=== PATIENT | female | born 1995 | race Caucasian/White ===

== ENCOUNTER 2022-04-07 16:16 | Emergency (ER) | payer OTHER, SELFPAY | END 2022-04-07 18:19 | disposition left against medical advice (07) | PROVIDERS: Emergency Provider Emergency Medicine | DX: Z02.83 Encounter for blood-alcohol and blood-drug test (principal) ==

== ENCOUNTER 2023-02-01 20:10 | Inpatient (IN) | payer OTHER, SELFPAY ==
--- NOTE | ~2023-02-01 | CT_ITS ---
EXAMINATION: CT LUMBAR SPINE WITH CONTRAST CLINICAL INFORMATION: Abscess. Intractable back pain. COMPARISON: Thoracic spine radiographs from 02/01/2023. TECHNIQUE: Multidetector helical imaging of the lumbar spine was obtained following the administration of 85 mL of Gadavist intravenous contrast. . Multiple axial reformats and coronal/sagittal reconstructions were created the technologist workstation for review. This CT examination was performed using dose optimization techniques as appropriate, variously including the following: *Automated exposure control. *Adjustment of mA and/or kV according to patient size (this includes techniques or standardized protocols for targeted exams where dose is matched to indication/reason for exam; i.e. extremities or head). *Use of iterative reconstruction technique. DLP: 355 mGy-cm FINDINGS: Normal anatomic alignment. No evidence of acute fracture or traumatic subluxation. The vertebral body heights are maintained. Mild degenerative disc disease at T12-L1 and L1-L2. Nonspecific partially visualized endplate sclerosis along the superior endplate of T12 (appears to correlate with degenerative changes on recent radiographs). Otherwise, the intervertebral disc spaces are maintained. No suspicious lytic or sclerotic osseous lesions. No demonstrated suspicious osseous erosions. No demonstrated epidural collection. Moderate subcutaneous edema within the soft tissues of the back from T12-S1. No additional significant abnormalities of the paraspinal musculature. No demonstrated discrete paraspinal collection. Limited evaluation of the intra-abdominal structures without significant abnormalities. The abdominal aorta is of normal contour and caliber. AXIAL SPINAL LEVELS: L1-L2: Normal annular contour. There is mild bilateral facet joint arthropathy. There is no neural foraminal stenosis. There is no demonstrated spinal canal stenosis. L2-L3: Normal annular contour. There is moderate left and mild right facet joint arthropathy. There is no neural foraminal stenosis. There is no demonstrated spinal canal stenosis. L3-L4: Normal annular contour. There is mild left and no right facet joint arthropathy. There is no neural foraminal stenosis. There is no demonstrated spinal canal stenosis. L4-L5: Normal annular contour. There is mild bilateral facet joint arthropathy. There is no neural foraminal stenosis. There is no demonstrated spinal canal stenosis. L5-S1: Shallow diffuse disc bulge. There is mild bilateral facet joint arthropathy. There is no neural foraminal stenosis. There is no demonstrated spinal canal stenosis. CT/CT lumbar spine w IV con IMPRESSION: 1. No evidence of acute fracture or traumatic subluxation of the lumbar spine. 2. 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 Most notably, there is moderate subcutaneous edema within the soft tissues of the back from T12-S1. No demonstrated discrete collection.
--- NOTE | ~2023-02-01 | XR_ITS ---
EXAMINATION: XR THORACIC SPINE CLINICAL INFORMATION: Pain COMPARISON: None available. TECHNIQUE: 3 views of the thoracic spine were obtained. FINDINGS: There is mild curvature of the midthoracic spine to the right and lower thoracic spine to the left. Bone alignment is otherwise normal. No fracture or dislocation mild degenerative spondylosis and disc space narrowing of the lower thoracic spine. Paraspinal soft tissues are normal. XR/XR thoracic spine 3V IMPRESSION: Mild scoliosis and degenerative changes.
--- NOTE | ~2023-02-01 | XR_ITS ---
EXAMINATION: XR CHEST CLINICAL INFORMATION: Pain COMPARISON: None available. TECHNIQUE: 2 views of the chest were obtained. FINDINGS: The cardiac and mediastinal contours are normal. There is subsegmental atelectasis at both lung bases. The lungs are otherwise clear. No pleural effusion or pneumothorax. No acute osseous abnormality. XR/XR chest 2V IMPRESSION: Subsegmental atelectasis at the lung bases.
[2023-02-01 20:17] VITALS: BP 130/82; PULSE 97; O2SAT 98
--- NOTE | 2023-02-01 20:33 | ED_ITS ---
HPI - General Adult General Chief complaint: Back Pain/Injury <Akash Duarte - Last Filed: 02/01/23 20:35> Stated complaint: Back Pain for 1 day <Akash Duarte - Last Filed: 02/01/23 20:35> Time Seen by Provider: 02/01/23 23:03 <Akash Duarte - Last Filed: 02/01/23 20:35> Source: patient <KAYLEY Longoria - Last Filed: 02/10/23 07:06> Mode of arrival: ambulatory <KAYLEY Longoria - Last Filed: 02/10/23 07:06> Limitations: no limitations <KAYLEY Longoria Last Filed: 02/10/23 07:06> History of Present Illness HPI narrative: 27 yold female presents to the ED for left upper back pain with fever. Patient states no abdominal pain, nuasea, vomitting, dysuria, hematuria, flank pain, or urinary/bowel bowel incontinence. Patient has pmh of IV drug use. <KAYLEY Longoria - Last Filed: 02/10/23 07:06> Related Data Home medications: Home Medications Medication Instructions Recorded Confirmed No Known Home Meds 02/02/23 02/02/23 <Akash Duarte - Last Filed: 02/01/23 20:35> Allergies/adverse reactions: Allergies Allergy/AdvReac Type Severity Reaction Status Date / Time No Known Allergies Allergy Verified 02/01/23 20:30 [No Known Allergies*] <Akash Duarte - Last Filed: 02/01/23 20:35> Review of Systems Review of Systems: Back pain <KAYLEY Longoria - Last Filed: 02/10/23 07:06> Yes all other systems are reviewed and are negative <KAYLEY Longoria - Last Filed: 02/10/23 07:06> PMFSH Past Medical History Medical History: Medical History (Updated 02/03/23 @ 15:04 by Valerie Wynn MD) Staphylococcus aureus bacteremia <Akash Duarte - Last Filed: 02/01/23 20:35> Social History Social History: Social History Household Members: None Housing: Homeless Do you presently have visiting nurse or other home services: No Alcohol intake: never Patient Tobacco Use Status: Current everyday Tobacco user Tobacco use type: Cigarette Cigarette Packs Per Day: 0.5 Cigarettes Per Day: 10.0 Smoked in Last 30 Days: Yes Patient Interested in Nicotine Replacement: No Use of substances other than those prescribed or required for medical reasons: Yes Substance Use Type: Crack/Cocaine and Heroin Substance Use Frequency: Daily Last Used Substance: Just Prior to Admission Currently Displaying Signs/Symptoms of Drug Intoxication Withdrawal: No Any prior treatment program specific to substance use: Yes Have you been hit, kicked, punched, or otherwise hurt by someone within the past year? If so, by whom?: No Do you feel safe in your current relationship?: Yes Is there a partner from a previous relationship who is making you feel unsafe n ow?: No Are you made to feel afraid or neglected: No Advance Directives: No Advance Directives Information Provided: Yes Do you have thoughts of harming others: None Do you have a plan to hurt others: No Plan Recently lost weight without trying: No Nutrition Risks: No Nutritional Risk Patient : No service: No <Akash Duarte - Last Filed: 02/01/23 20:35> Physical Exam ED Vital Signs: BMI result Body Mass Index 25.7 <Akash Duarte - Last Filed: 02/01/23 20:35> BMI result Body Mass Index 25.7 <KAYLEY Longoria - Last Filed: 02/10/23 07:06> Const General: cooperative, healthy appearing, comfortable, no acute distress, well developed, alert, awake and Physically active <KAYLEY Longoria Last Filed: 02/10/23 07:06> Orientation/consciousness: oriented to person, oriented to place, oriented to time and patient oriented x3 <KAYLEY Longoria Last Filed: 02/10/23 07:06> HENMT Head: Yes normal to inspection, Yes No palpable skull fracture present, Yes normocephalic and Yes atraumatic <KAYLEY Longoria Last Filed: 02/10/23 07:06> Eyes General: appearance normal, both eyes and all related structures <KAYLEY Longoria Last Filed: 02/10/23 07:06> Neck Neck: Yes normal visual inspection, Yes full ROM, Yes no lymphadenopathy, Yes no meningeal signs, Yes trachea midline, Yes supple, No anterior neck swelling and No tender <KAYLEY Longoria - Last Filed: 02/10/23 07:06> Chest Chest palpation & inspection: normal inspection of the chest and normal palpation of entire chest wall <KAYLEY Longoria - Last Filed: 02/10/23 07:06> Resp Effort & Inspection: normal respiratory effort and able to speak in complete sentences <KAYLEY Longoria Last Filed: 02/10/23 07:06> Auscultation: clear to auscultation bilaterally <KAYLEY Longoria Last Filed: 02/10/23 07:06> Cardio Jugular venous distension: no JVD <KAYLEY Longoria Last Filed: 02/10/23 07:06> Heart sounds: S1 normal heart sound present and S2 normal heart sound present <KAYLEY Longoria Last Filed: 02/10/23 07:06> GI Inspection: Yes normal to inspection and No abdominal wall ecchymosis <KAYLEY Longoria - Last Filed: 02/10/23 07:06> Palpation (GI): Soft to palpation, not firm, nontender, no guarding and not rigid <KAYLEY Longoria Last Filed: 02/10/23 07:06> General: No CVA tenderness and Yes no CVA tenderness <KAYLEY Longoria - Last Filed: 02/10/23 07:06> Back/Spine/Pelvis Back: no CVA tenderness, No CVA tenderness and back tenderness (negative for spine tenderness. positive for left paraspinatus tenderness.) <KAYLEY Longoria - Last Filed: 02/10/23 07:06> Back/spine/pelvis image: 1. tenderness on palpation. negative for any redness, ecchymosisis, or rash. <Akash Duarte - Last Filed: 02/01/23 20:35> 1. tenderness on palpation. negative for any redness, ecchymosisis, or rash. <KAYLEY Longoria Last Filed: 02/10/23 07:06> Skin General skin exam: no rashes or lesions noted and elasticity normal <KAYLEY Longoria - Last Filed: 02/10/23 07:06> Neuro Other: negative for any neuro defcitis. <KAYLEY Longoria - Last Filed: 02/10/23 07:06> General: oriented to person, oriented to place, oriented to time, patient oriented x3, gait normal, tone normal, moves all extremities, Normal light touch and pain sensation, no meningeal signs, no focal motor deficits, CN's II-XI intact bilaterally and normal sensation to monofilament <KAYLEY Longoria - Last Filed: 02/10/23 07:06> Extrem General: Yes normal to inspection and Yes full ROM <KAYLEY Longoria - Last Filed: 02/10/23 07:06> Psych Appearance: grossly normal, well kempt and not disheveled <KAYLEY Longoria - Last Filed: 02/10/23 07:06> Course Course Course Narrative: 27-year-old female presents for evaluation of right midback pain. The pain is worse with movement and taking a deep breath. She is noted to be febrile to 101.4 triage. She was medicated for her fever. We will get blood cultures lactic acid, chest x-ray, UA and labs. <Akash Duarte - Last Filed: 02/01/23 20:35> Reevaluation(s) Reevaluation #1: 27 yold female presents to the ED for fever and back pain without any spinal tenderness. Zosyn ordered <KAYLEY Longoria - Last Filed: 02/10/23 07:06> Medications Administered Generic Name Dose Route Start Last Admin Trade Name Freq PRN Reason Stop Dose Admin Acetaminophen 650 mg 02/02/23 03:32 02/10/23 03:29 Acetaminophen 325 Mg Tablet PO 650 mg Q6H PRN Administration moderate pain or fever Diphenhydramine HCl 25 mg 02/02/23 03:32 02/09/23 21:12 Diphenhydramine Hcl 50 Mg/Ml Vial IVPUSH 25 mg Q6H PRN Administration pruritis Cefazolin Sodium/Dextrose 2 gm in 50 mls @ 100 mls/hr 02/04/23 12:00 02/10/23 04:10 Ancef IV Infused Q8H NADIA Infusion Ibuprofen 800 mg 02/02/23 10:35 02/08/23 16:10 Ibuprofen 800 Mg Tablet PO 800 mg Q8H PRN Administration Pain, Mild (Pain Scale 1-3) Lidocaine 1 patch 02/02/23 09:00 02/09/23 08:34 Lidocaine 4 % Patch Adh..Patch TRANSDERMA Not Given DAILY [facility] Protocol Methadone HCl 10 mg 02/04/23 20:00 02/09/23 19:40 Methadone Hcl 20 Mg/2 Ml Oral.Conc PO 10 mg DAILY@1999 [facility] Administration Ondansetron HCl 4 mg 02/03/23 07:25 02/10/23 03:29 Ondansetron Hcl 4 Mg/2 Ml Vial IVPUSH 4 mg Q8H PRN Administration Nausea and Vomiting Oxycodone HCl 5 mg 02/07/23 16:19 02/10/23 03:29 Oxycodone Hcl Immed Release 5 Mg Tablet PO 5 mg Q6H PRN Administration Pain, Moderate(Pain Scale 4-7) Sodium Chloride 3 ml 02/02/23 08:00 02/09/23 19:40 0.9 % Sodium Chloride Flush 3 Ml Syringe IVFLUSH 3 ml QSHIFT [facility] Administration Discontinued Medications Generic Name Dose Route Start Last Admin Trade Name Freq PRN Reason Stop Dose Admin Acetaminophen 975 mg 02/01/23 20:33 02/01/23 20:43 Acetaminophen 325 Mg Tablet PO 02/01/23 20:34 975 mg ONCE ONE Administration Hydromorphone HCl 1 mg 02/02/23 15:53 02/02/23 16:04 Hydromorphone Hcl 1 Mg/Ml Syringe IVPUSH 02/02/23 15:54 1 mg ONCE ONE Administration Protocol Hydromorphone HCl 1 mg 02/02/23 16:16 02/02/23 16:32 Hydromorphone Hcl 1 Mg/Ml Syringe IVPUSH 02/02/23 16:17 1 mg ONCE ONE Administration Protocol Piperacillin Sod/Tazobactam 50 mls @ 100 mls/hr 02/01/23 23:16 02/02/23 01:41 Sod 3.375 gm/ Sodium Chloride IV 02/01/23 23:45 Infused ONCE ONE Infusion Vancomycin HCl 1,500 mg/ 500 mls @ 333.333 mls/hr 02/02/23 01:15 02/02/23 03:28 Sodium Chloride IV 02/02/23 02:44 Infused ONCE ONE Infusion Protocol Vancomycin HCl 750 mg/ Sodium 265 mls @ 265 mls/hr 02/02/23 12:00 02/04/23 04:54 Chloride IV Infused Q8H NADIA Infusion Sodium Chloride 1,000 mls @ 100 mls/hr 02/02/23 17:00 02/04/23 23:57 Ns IVCONT Infused .Q10H NADIA Infusion Acetaminophen 1,000 mg in 100 mls @ 400 mls/hr 02/03/23 00:10 02/03/23 00:45 Ofirmev IV 02/03/23 00:24 Infused ONCE ONE Infusion Ibuprofen 800 mg 02/02/23 01:43 02/02/23 01:48 Ibuprofen 800 Mg Tablet PO 02/02/23 01:44 800 mg ONCE ONE Administration Iohexol 100 ml 02/03/23 11:45 02/03/23 11:46 Iohexol 350 Mg/Ml 100 Ml Infus..Btl IV 02/03/23 11:46 85 ml ONCE ONE Administration Lorazepam 1 mg 02/02/23 15:24 02/02/23 15:35 Lorazepam 1 Mg Tablet PO 02/02/23 15:25 1 mg ONCE ONE Administration Methadone HCl 30 mg 02/02/23 10:08 02/02/23 10:16 Methadone Hcl 20 Mg/2 Ml Oral.Conc PO 02/02/23 10:09 30 mg ONCE ONE Administration Methadone HCl 10 mg 02/02/23 17:00 02/02/23 16:54 Methadone Hcl 20 Mg/2 Ml Oral.Conc PO 02/02/23 17:01 10 mg ONCE ONE Administration Methadone HCl 45 mg 02/03/23 09:00 02/03/23 07:42 Methadone Hcl 20 Mg/2 Ml Oral.Conc PO 45 mg DAILY NADIA Administration Methadone HCl 50 mg 02/04/23 09:00 02/09/23 08:40 Methadone Hcl 20 Mg/2 Ml Oral.Conc PO 50 mg DAILY NADIA Administration Methadone HCl 10 mg 02/09/23 11:47 02/09/23 11:54 Methadone Hcl 20 Mg/2 Ml Oral.Conc PO 02/09/23 11:48 10 mg ONCE ONE Administration Morphine Sulfate 4 mg 02/02/23 13:01 02/07/23 05:40 Morphine Sulfate 4 Mg/Ml Cartridge IVPUSH 4 mg Q3H PRN Administration Pain, Mild (Pain Scale 1-3) Protocol Oxycodone HCl 5 mg 02/02/23 13:20 02/07/23 08:50 Oxycodone Hcl Immed Release 5 Mg Tablet PO 5 mg Q6H PRN Administration Pain, Mild (Pain Scale 1-3) <Akash Duarte - Last Filed: 02/01/23 20:35> Medications Administered Generic Name Dose Route Start Last Admin Trade Name Freq PRN Reason Stop Dose Admin Acetaminophen 650 mg 02/02/23 03:32 02/10/23 03:29 Acetaminophen 325 Mg Tablet PO 650 mg Q6H PRN Administration moderate pain or fever Diphenhydramine HCl 25 mg 02/02/23 03:32 02/09/23 21:12 Diphenhydramine Hcl 50 Mg/Ml Vial IVPUSH 25 mg Q6H PRN Administration pruritis Cefazolin Sodium/Dextrose 2 gm in 50 mls @ 100 mls/hr 02/04/23 12:00 02/10/23 04:10 Ancef IV Infused Q8H NADIA Infusion Ibuprofen 800 mg 02/02/23 10:35 02/08/23 16:10 Ibuprofen 800 Mg Tablet PO 800 mg Q8H PRN Administration Pain, Mild (Pain Scale 1-3) Lidocaine 1 patch 02/02/23 09:00 02/09/23 08:34 Lidocaine 4 % Patch Adh..Patch TRANSDERMA Not Given DAILY [facility] Protocol Methadone HCl 10 mg 02/04/23 20:00 02/09/23 19:40 Methadone Hcl 20 Mg/2 Ml Oral.Conc PO 10 mg DAILY@1999 [facility] Administration Ondansetron HCl 4 mg 02/03/23 07:25 02/10/23 03:29 Ondansetron Hcl 4 Mg/2 Ml Vial IVPUSH 4 mg Q8H PRN Administration Nausea and Vomiting Oxycodone HCl 5 mg 02/07/23 16:19 02/10/23 03:29 Oxycodone Hcl Immed Release 5 Mg Tablet PO 5 mg Q6H PRN Administration Pain, Moderate(Pain Scale 4-7) Sodium Chloride 3 ml 02/02/23 08:00 02/09/23 19:40 0.9 % Sodium Chloride Flush 3 Ml Syringe IVFLUSH 3 ml QSHIFT [facility] Administration Discontinued Medications Generic Name Dose Route Start Last Admin Trade Name Alvin PRN Reason Stop Dose Admin Acetaminophen 975 mg 02/01/23 20:33 02/01/23 20:43 Acetaminophen 325 Mg Tablet PO 02/01/23 20:34 975 mg ONCE ONE Administration Hydromorphone HCl 1 mg 02/02/23 15:53 02/02/23 16:04 Hydromorphone Hcl 1 Mg/Ml Syringe IVPUSH 02/02/23 15:54 1 mg ONCE ONE Administration Protocol Hydromorphone HCl 1 mg 02/02/23 16:16 02/02/23 16:32 Hydromorphone Hcl 1 Mg/Ml Syringe IVPUSH 02/02/23 16:17 1 mg ONCE ONE Administration Protocol Piperacillin Sod/Tazobactam 50 mls @ 100 mls/hr 02/01/23 23:16 02/02/23 01:41 Sod 3.375 gm/ Sodium Chloride IV 02/01/23 23:45 Infused ONCE ONE Infusion Vancomycin HCl 1,500 mg/ 500 mls @ 333.333 mls/hr 02/02/23 01:15 02/02/23 03:28 Sodium Chloride IV 02/02/23 02:44 Infused ONCE ONE Infusion Protocol Vancomycin HCl 750 mg/ Sodium 265 mls @ 265 mls/hr 02/02/23 12:00 02/04/23 04:54 Chloride IV Infused Q8H NADIA Infusion Sodium Chloride 1,000 mls @ 100 mls/hr 02/02/23 17:00 02/04/23 23:57 Ns IVCONT Infused .Q10H NADIA Infusion Acetaminophen 1,000 mg in 100 mls @ 400 mls/hr 02/03/23 00:10 02/03/23 00:45 Ofirmev IV 02/03/23 00:24 Infused ONCE ONE Infusion Ibuprofen 800 mg 02/02/23 01:43 02/02/23 01:48 Ibuprofen 800 Mg Tablet PO 02/02/23 01:44 800 mg ONCE ONE Administration Iohexol 100 ml 02/03/23 11:45 02/03/23 11:46 Iohexol 350 Mg/Ml 100 Ml Infus..Btl IV 02/03/23 11:46 85 ml ONCE ONE Administration Lorazepam 1 mg 02/02/23 15:24 02/02/23 15:35 Lorazepam 1 Mg Tablet PO 02/02/23 15:25 1 mg ONCE ONE Administration Methadone HCl 30 mg 02/02/23 10:08 02/02/23 10:16 Methadone Hcl 20 Mg/2 Ml Oral.Conc PO 02/02/23 10:09 30 mg ONCE ONE Administration Methadone HCl 10 mg 02/02/23 17:00 02/02/23 16:54 Methadone Hcl 20 Mg/2 Ml Oral.Conc PO 02/02/23 17:01 10 mg ONCE ONE Administration Methadone HCl 45 mg 02/03/23 09:00 02/03/23 07:42 Methadone Hcl 20 Mg/2 Ml Oral.Conc PO 45 mg DAILY NADIA Administration Methadone HCl 50 mg 02/04/23 09:00 02/09/23 08:40 Methadone Hcl 20 Mg/2 Ml Oral.Conc PO 50 mg DAILY NADIA Administration Methadone HCl 10 mg 02/09/23 11:47 02/09/23 11:54 Methadone Hcl 20 Mg/2 Ml Oral.Conc PO 02/09/23 11:48 10 mg ONCE ONE Administration Morphine Sulfate 4 mg 02/02/23 13:01 02/07/23 05:40 Morphine Sulfate 4 Mg/Ml Cartridge IVPUSH 4 mg Q3H PRN Administration Pain, Mild (Pain Scale 1-3) Protocol Oxycodone HCl 5 mg 02/02/23 13:20 02/07/23 08:50 Oxycodone Hcl Immed Release 5 Mg Tablet PO 5 mg Q6H PRN Administration Pain, Mild (Pain Scale 1-3) <KAYLEY Longoria Last Filed: 02/10/23 07:06> Medical Decision Making Medical Decision Making MDM Narrative: 27-year-old female with back pain fever IV drug use. Labs ordered. Patient is not toxic appearing. Patient will be admitted due to IV drug use with fever and back pain. Antibiotics ordered. <KAYLEY Longoria Last Filed: 02/10/23 07:06> Differential Diagnosis Differential Diagnoses: The differential diagnosis associated with the presentation includes (Bacteremia, epidural abscess, spinal osteomyelitis,) <KAYLEY Longoria Last Filed: 02/10/23 07:06> Admission/Observation Consideration of admission/observation: Escalation of care including admission/observation considered <KAYLEY Longoria Last Filed: 02/10/23 07:06> Consult Healthcare Provider Management of the patient was discussed with: Hospitalist (Dr. Zhao) <KAYLEY Longoria - Last Filed: 02/10/23 07:06> Lab Data MDM Lab Attestation statement: I reviewed the patient's lab results. <KAYLEY Longoria - Last Filed: 02/10/23 07:06> Result Diagrams: 02/01/23 21:00 02/07/23 05:09 <Akash Duarte - Last Filed: 02/01/23 20:35> Labs: Lab Results 02/01/23 02/01/23 02/01/23 Range/Units 21:00 21:00 21:00 WBC 12.3 H (4.8-10.8) X10*3/uL RBC 4.35 (4.20-5.50) X10*6/uL Hgb 12.4 (12.0-16.0) g/dl Hct 37.7 (37.0-47.0) % MCV 86.7 (80.0-98.0) fL MCH 28.5 (27.0-33.0) pg MCHC 32.9 (31.0-35.0) g/dl RDW 14.5 (11.0-16.0) % Plt Count 183 (160-400) X10*3/uL MPV 9.4 (9.4-12.3) fL Immature Gran % (Auto) 0.6 H (0.0-0.4) % Neut % (Auto) 83.9 H (45-73) % Lymph % (Auto) 9.6 L (20-40) % [place] % (Auto) 5.7 (2-11) % Eos % (Auto) 0.0 (0-4) % Baso % (Auto) 0.2 (0-2) % Lymph # (Auto) 1.2 (1.2-4.9) X10*3/uL [place] # (Auto) 0.7 (0.1-1.2) X10*3/uL Eos # (Auto) 0.0 (0.0-0.4) X10*3/uL Baso # (Auto) 0.0 (0.0-0.2) X10*3/uL Abs Immat Gran (auto) 0.07 H (0.00-0.03) X10*3/uL Absolute Neuts (auto) 10.3 H (2.0-8.3) x10*3/uL Absolute Nucleated RBC 0.000 (0.0-0.012) X10*3/uL Nucleated RBC % (auto) 0.0 (0.0-0.2) /100WBC ESR (0-20) MM/HR Sodium 133 L (135-145) mmol/L Potassium 3.9 (3.3-5.1) mmol/L Chloride 101 (96-108) mmol/L Carbon Dioxide 23 (22-29) mmol/L Anion Gap 13 (12-20) BUN 9 (9-16) mg/dL Creatinine 0.74 (0.5-1.4) mg/dL Estim Creat Clear Calc 98.5 Estimated GFR > 60 Random Glucose 97 (60-115) mg/dL Lactic Acid 0.9 (0.5-2.0) mmol/L Calcium 8.8 (8.4-10.2) mg/dL Total Creatine Kinase 126 (26-140) U/L C-Reactive Protein 14.80 H (< or = 0.50) mg/dL Urine Color Urine Appearance Urine pH (5.0-9.0) Ur Specific [place] (1.005-1.025) Urine Protein (Neg-Trace) mg/dL Urine Glucose (UA) (Negative) mg/dL Urine Ketones (Negative) mg/dL Urine Blood (Negative) Urine Nitrite (Negative) Ur Leukocyte Esterase (Negative) Urine RBC (0-2) /HPF Urine WBC (0-5) /HPF Ur Squamous Epith Cells (0-2) /HPF Urine Bacteria (None Seen) Hyaline Casts (0-2) /LPF Hep Bs Antigen (Negative) Hep Bs Antibody (Nonreactive) Hep B Core Total Ab (Nonreactive) Hepatitis C Ab (EIA) (Nonreactive) HIV 1&2 Ab/P24 Ag 4thGn (Nonreactive) Influenza Type A (PCR) (Negative) Influenza Type B (PCR) (Negative) RSV RNA Qual (PCR) (Negative) SARS-CoV-2 RNA (RT-PCR) (Negative) 02/01/23 02/01/23 02/01/23 Range/Units 21:00 21:00 21:00 WBC (4.8-10.8) X10*3/uL RBC (4.20-5.50) X10*6/uL Hgb (12.0-16.0) g/dl Hct (37.0-47.0) % MCV (80.0-98.0) fL MCH (27.0-33.0) pg MCHC (31.0-35.0) g/dl RDW (11.0-16.0) % Plt Count (160-400) X10*3/uL MPV (9.4-12.3) fL Immature Gran % (Auto) (0.0-0.4) % Neut % (Auto) (45-73) % Lymph % (Auto) (20-40) % [place] % (Auto) (2-11) % Eos % (Auto) (0-4) % Baso % (Auto) (0-2) % Lymph # (Auto) (1.2-4.9) X10*3/uL [place] # (Auto) (0.1-1.2) X10*3/uL Eos # (Auto) (0.0-0.4) X10*3/uL Baso # (Auto) (0.0-0.2) X10*3/uL Abs Immat Gran (auto) (0.00-0.03) X10*3/uL Absolute Neuts (auto) (2.0-8.3) x10*3/uL Absolute Nucleated RBC (0.0-0.012) X10*3/uL Nucleated RBC % (auto) (0.0-0.2) /100WBC ESR 38 H (0-20) MM/HR Sodium (135-145) mmol/L Potassium (3.3-5.1) mmol/L Chloride (96-108) mmol/L Carbon Dioxide (22-29) mmol/L Anion Gap (12-20) BUN (9-16) mg/dL Creatinine (0.5-1.4) mg/dL Estim Creat Clear Calc Estimated GFR Random Glucose (60-115) mg/dL Lactic Acid (0.5-2.0) mmol/L Calcium (8.4-10.2) mg/dL Total Creatine Kinase (26-140) U/L C-Reactive Protein (< or = 0.50) mg/dL Urine Color Urine Appearance Urine pH (5.0-9.0) Ur Specific [place] (1.005-1.025) Urine Protein (Neg-Trace) mg/dL Urine Glucose (UA) (Negative) mg/dL Urine Ketones (Negative) mg/dL Urine Blood (Negative) Urine Nitrite (Negative) Ur Leukocyte Esterase (Negative) Urine RBC (0-2) /HPF Urine WBC (0-5) /HPF Ur Squamous Epith Cells (0-2) /HPF Urine Bacteria (None Seen) Hyaline Casts (0-2) /LPF Hep Bs Antigen Negative (Negative) Hep Bs Antibody NONREACTIVE (Nonreactive) Hep B Core Total Ab Nonreactive (Nonreactive) Hepatitis C Ab (EIA) Reactive H (Nonreactive) HIV 1&2 Ab/P24 Ag 4thGn Nonreactive (Nonreactive) Influenza Type A (PCR) NEGATIVE (Negative) Influenza Type B (PCR) NEGATIVE (Negative) RSV RNA Qual (PCR) NEGATIVE (Negative) SARS-CoV-2 RNA (RT-PCR) NEGATIVE (Negative) 02/01/23 Range/Units 23:24 WBC (4.8-10.8) X10*3/uL RBC (4.20-5.50) X10*6/uL Hgb (12.0-16.0) g/dl Hct (37.0-47.0) % MCV (80.0-98.0) fL MCH (27.0-33.0) pg MCHC (31.0-35.0) g/dl RDW (11.0-16.0) % Plt Count (160-400) X10*3/uL MPV (9.4-12.3) fL Immature Gran % (Auto) (0.0-0.4) % Neut % (Auto) (45-73) % Lymph % (Auto) (20-40) % [place] % (Auto) (2-11) % Eos % (Auto) (0-4) % Baso % (Auto) (0-2) % Lymph # (Auto) (1.2-4.9) X10*3/uL [place] # (Auto) (0.1-1.2) X10*3/uL Eos # (Auto) (0.0-0.4) X10*3/uL Baso # (Auto) (0.0-0.2) X10*3/uL Abs Immat Gran (auto) (0.00-0.03) X10*3/uL Absolute Neuts (auto) (2.0-8.3) x10*3/uL Absolute Nucleated RBC (0.0-0.012) X10*3/uL Nucleated RBC % (auto) (0.0-0.2) /100WBC ESR (0-20) MM/HR Sodium (135-145) mmol/L Potassium (3.3-5.1) mmol/L Chloride (96-108) mmol/L Carbon Dioxide (22-29) mmol/L Anion Gap (12-20) BUN (9-16) mg/dL Creatinine (0.5-1.4) mg/dL Estim Creat Clear Calc Estimated GFR Random Glucose (60-115) mg/dL Lactic Acid (0.5-2.0) mmol/L Calcium (8.4-10.2) mg/dL Total Creatine Kinase (26-140) U/L C-Reactive Protein (< or = 0.50) mg/dL Urine Color Dark Yellow Urine Appearance Cloudy Urine pH 6.0 (5.0-9.0) Ur Specific [place] >= 1.030 H (1.005-1.025) Urine Protein 30 (1+) H (Neg-Trace) mg/dL Urine Glucose (UA) Negative (Negative) mg/dL Urine Ketones Trace (Negative) mg/dL Urine Blood Negative (Negative) Urine Nitrite Negative (Negative) Ur Leukocyte Esterase Negative (Negative) Urine RBC 3-5 H (0-2) /HPF Urine WBC 0-5 (0-5) /HPF Ur Squamous Epith Cells 11-20 (0-2) /HPF Urine Bacteria 1+ (None Seen) Hyaline Casts 0-2 (0-2) /LPF Hep Bs Antigen (Negative) Hep Bs Antibody (Nonreactive) Hep B Core Total Ab (Nonreactive) Hepatitis C Ab (EIA) (Nonreactive) HIV 1&2 Ab/P24 Ag 4thGn (Nonreactive) Influenza Type A (PCR) (Negative) Influenza Type B (PCR) (Negative) RSV RNA Qual (PCR) (Negative) SARS-CoV-2 RNA (RT-PCR) (Negative) <Akash Duarte - Last Filed: 04/23/23 20:35> Lab Results 02/01/23 02/01/23 02/01/23 Range/Units 21:00 21:00 21:00 WBC 12.3 H (4.8-10.8) X10*3/uL RBC 4.35 (4.20-5.50) X10*6/uL Hgb 12.4 (12.0-16.0) g/dl Hct 37.7 (37.0-47.0) % MCV 86.7 (80.0-98.0) fL MCH 28.5 (27.0-33.0) pg MCHC 32.9 (31.0-35.0) g/dl RDW 14.5 (11.0-16.0) % Plt Count 183 (160-400) X10*3/uL MPV 9.4 (9.4-12.3) fL Immature Gran % (Auto) 0.6 H (0.0-0.4) % Neut % (Auto) 83.9 H (45-73) % Lymph % (Auto) 9.6 L (20-40) % [place] % (Auto) 5.7 (2-11) % Eos % (Auto) 0.0 (0-4) % Baso % (Auto) 0.2 (0-2) % Lymph # (Auto) 1.2 (1.2-4.9) X10*3/uL [place] # (Auto) 0.7 (0.1-1.2) X10*3/uL Eos # (Auto) 0.0 (0.0-0.4) X10*3/uL Baso # (Auto) 0.0 (0.0-0.2) X10*3/uL Abs Immat Gran (auto) 0.07 H (0.00-0.03) X10*3/uL Absolute Neuts (auto) 10.3 H (2.0-8.3) x10*3/uL Absolute Nucleated RBC 0.000 (0.0-0.012) X10*3/uL Nucleated RBC % (auto) 0.0 (0.0-0.2) /100WBC ESR (0-20) MM/HR Sodium 133 L (135-145) mmol/L Potassium 3.9 (3.3-5.1) mmol/L Chloride 101 (96-108) mmol/L Carbon Dioxide 23 (22-29) mmol/L Anion Gap 13 (12-20) BUN 9 (9-16) mg/dL Creatinine 0.74 (0.5-1.4) mg/dL Estim Creat Clear Calc 98.5 Estimated GFR > 60 Random Glucose 97 (60-115) mg/dL Lactic Acid 0.9 (0.5-2.0) mmol/L Calcium 8.8 (8.4-10.2) mg/dL Total Creatine Kinase 126 (26-140) U/L C-Reactive Protein 14.80 H (< or = 0.50) mg/dL Urine Color Urine Appearance Urine pH (5.0-9.0) Ur Specific [place] (1.005-1.025) Urine Protein (Neg-Trace) mg/dL Urine Glucose (UA) (Negative) mg/dL Urine Ketones (Negative) mg/dL Urine Blood (Negative) Urine Nitrite (Negative) Ur Leukocyte Esterase (Negative) Urine RBC (0-2) /HPF Urine WBC (0-5) /HPF Ur Squamous Epith Cells (0-2) /HPF Urine Bacteria (None Seen) Hyaline Casts (0-2) /LPF Hep Bs Antigen (Negative) Hep Bs Antibody (Nonreactive) Hep B Core Total Ab (Nonreactive) Hepatitis C Ab (EIA) (Nonreactive) HIV 1&2 Ab/P24 Ag 4thGn (Nonreactive) Influenza Type A (PCR) (Negative) Influenza Type B (PCR) (Negative) RSV RNA Qual (PCR) (Negative) SARS-CoV-2 RNA (RT-PCR) (Negative) 02/01/23 02/01/23 02/01/23 Range/Units 21:00 21:00 21:00 WBC (4.8-10.8) X10*3/uL RBC (4.20-5.50) X10*6/uL Hgb (12.0-16.0) g/dl Hct (37.0-47.0) % MCV (80.0-98.0) fL MCH (27.0-33.0) pg MCHC (31.0-35.0) g/dl RDW (11.0-16.0) % Plt Count (160-400) X10*3/uL MPV (9.4-12.3) fL Immature Gran % (Auto) (0.0-0.4) % Neut % (Auto) (45-73) % Lymph % (Auto) (20-40) % [place] % (Auto) (2-11) % Eos % (Auto) (0-4) % Baso % (Auto) (0-2) % Lymph # (Auto) (1.2-4.9) X10*3/uL [place] # (Auto) (0.1-1.2) X10*3/uL Eos # (Auto) (0.0-0.4) X10*3/uL Baso # (Auto) (0.0-0.2) X10*3/uL Abs Immat Gran (auto) (0.00-0.03) X10*3/uL Absolute Neuts (auto) (2.0-8.3) x10*3/uL Absolute Nucleated RBC (0.0-0.012) X10*3/uL Nucleated RBC % (auto) (0.0-0.2) /100WBC ESR 38 H (0-20) MM/HR Sodium (135-145) mmol/L Potassium (3.3-5.1) mmol/L Chloride (96-108) mmol/L Carbon Dioxide (22-29) mmol/L Anion Gap (12-20) BUN (9-16) mg/dL Creatinine (0.5-1.4) mg/dL Estim Creat Clear Calc Estimated GFR Random Glucose (60-115) mg/dL Lactic Acid (0.5-2.0) mmol/L Calcium (8.4-10.2) mg/dL Total Creatine Kinase (26-140) U/L C-Reactive Protein (< or = 0.50) mg/dL Urine Color Urine Appearance Urine pH (5.0-9.0) Ur Specific [place] (1.005-1.025) Urine Protein (Neg-Trace) mg/dL Urine Glucose (UA) (Negative) mg/dL Urine Ketones (Negative) mg/dL Urine Blood (Negative) Urine Nitrite (Negative) Ur Leukocyte Esterase (Negative) Urine RBC (0-2) /HPF Urine WBC (0-5) /HPF Ur Squamous Epith Cells (0-2) /HPF Urine Bacteria (None Seen) Hyaline Casts (0-2) /LPF Hep Bs Antigen Negative (Negative) Hep Bs Antibody NONREACTIVE (Nonreactive) Hep B Core Total Ab Nonreactive (Nonreactive) Hepatitis C Ab (EIA) Reactive H (Nonreactive) HIV 1&2 Ab/P24 Ag 4thGn Nonreactive (Nonreactive) Influenza Type A (PCR) NEGATIVE (Negative) Influenza Type B (PCR) NEGATIVE (Negative) RSV RNA Qual (PCR) NEGATIVE (Negative) SARS-CoV-2 RNA (RT-PCR) NEGATIVE (Negative) 02/01/23 Range/Units 23:24 WBC (4.8-10.8) X10*3/uL RBC (4.20-5.50) X10*6/uL Hgb (12.0-16.0) g/dl Hct (37.0-47.0) % MCV (80.0-98.0) fL MCH (27.0-33.0) pg MCHC (31.0-35.0) g/dl RDW (11.0-16.0) % Plt Count (160-400) X10*3/uL MPV (9.4-12.3) fL Immature Gran % (Auto) (0.0-0.4) % Neut % (Auto) (45-73) % Lymph % (Auto) (20-40) % [place] % (Auto) (2-11) % Eos % (Auto) (0-4) % Baso % (Auto) (0-2) % Lymph # (Auto) (1.2-4.9) X10*3/uL [place] # (Auto) (0.1-1.2) X10*3/uL Eos # (Auto) (0.0-0.4) X10*3/uL Baso # (Auto) (0.0-0.2) X10*3/uL Abs Immat Gran (auto) (0.00-0.03) X10*3/uL Absolute Neuts (auto) (2.0-8.3) x10*3/uL Absolute Nucleated RBC (0.0-0.012) X10*3/uL Nucleated RBC % (auto) (0.0-0.2) /100WBC ESR (0-20) MM/HR Sodium (135-145) mmol/L Potassium (3.3-5.1) mmol/L Chloride (96-108) mmol/L Carbon Dioxide (22-29) mmol/L Anion Gap (12-20) BUN (9-16) mg/dL Creatinine (0.5-1.4) mg/dL Estim Creat Clear Calc Estimated GFR Random Glucose (60-115) mg/dL Lactic Acid (0.5-2.0) mmol/L Calcium (8.4-10.2) mg/dL Total Creatine Kinase (26-140) U/L C-Reactive Protein (< or = 0.50) mg/dL Urine Color Dark Yellow Urine Appearance Cloudy Urine pH 6.0 (5.0-9.0) Ur Specific [place] >= 1.030 H (1.005-1.025) Urine Protein 30 (1+) H (Neg-Trace) mg/dL Urine Glucose (UA) Negative (Negative) mg/dL Urine Ketones Trace (Negative) mg/dL Urine Blood Negative (Negative) Urine Nitrite Negative (Negative) Ur Leukocyte Esterase Negative (Negative) Urine RBC 3-5 H (0-2) /HPF Urine WBC 0-5 (0-5) /HPF Ur Squamous Epith Cells 11-20 (0-2) /HPF Urine Bacteria 1+ (None Seen) Hyaline Casts 0-2 (0-2) /LPF Hep Bs Antigen (Negative) Hep Bs Antibody (Nonreactive) Hep B Core Total Ab (Nonreactive) Hepatitis C Ab (EIA) (Nonreactive) HIV 1&2 Ab/P24 Ag 4thGn (Nonreactive) Influenza Type A (PCR) (Negative) Influenza Type B (PCR) (Negative) RSV RNA Qual (PCR) (Negative) SARS-CoV-2 RNA (RT-PCR) (Negative) <KAYLEY Longoria - Last Filed: 02/10/23 07:06> Radiology Impression Discussion of test interpretation with radiology: I have reviewed the radiologist's reading. <KAYLEY Longoria - Last Filed: 02/10/23 07:06> Discharge Plan Discharge Clinical Impression: Sepsis <Akash Duarte - Last Filed: 02/01/23 20:35> Patient Disposition: Admitted As Inpatient <Akash Duarte - Last Filed: 02/01/23 20:35> Interventions: Admission Worksheet (ED) Last Done: 02/02/23 09:16 <Akash Duarte - Last Filed: 02/01/23 20:35> Discharge Date/Time: 02/02/23 09:16 <Akash Duarte - Last Filed: 02/01/23 20:35>
[2023-02-01 20:37] VITALS: BP 141/73; PULSE 97; RESP 18; TEMP 38.6; O2SAT 97; BMI 25.7
[2023-02-01] MEDS: Acetaminophen 325 MG TABLET 975 MG PO (20:43)
--- NOTE | 2023-02-01 20:43 | PC.NURSE ---
medicated per MAR.
[2023-02-01 21:05] LABS: MANUAL DIFF FLAG NO
[2023-02-01 21:08] LABS: Basophils Percent Auto 0.2 % (0-2); Hematocrit 37.7 % (37.0-47.0); Hemoglobin 12.4 g/dl (12.0-16.0); Imm Gran Abs Auto 0.07 X10*3/uL (0.00-0.03); Imm Gran Pct Auto 0.6 % (0.0-0.4); Lymphocytes Absolute Auto 1.2 X10*3/uL (1.2-4.9); Lymphocytes Percent Auto 9.6 % (20-40); Mean Corpuscular HGB Conc 32.9 g/dl (31.0-35.0); Mean Corpuscular Hemoglobin 28.5 pg (27.0-33.0); Mean Corpuscular Volume 86.7 fL (80.0-98.0); Mean Platelet Volume 9.4 fL (9.4-12.3); Monocytes Absolute Auto 0.7 X10*3/uL (0.1-1.2); Monocytes Percent Auto 5.7 % (2-11); Neutrophils Absolute Auto 10.3 x10*3/uL (2.0-8.3); Neutrophils Percent Auto 83.9 % (45-73); Platelet Count 183 X10*3/uL (160-400); Red Blood Count 4.35 X10*6/uL (4.20-5.50); Red Cell Distribution Width 14.5 % (11.0-16.0); White Blood Count 12.3 X10*3/uL (4.8-10.8)
[2023-02-01 21:20] LABS: Lactic Acid 0.9 mmol/L (0.5-2.0)
[2023-02-01 21:23] LABS: Anion Gap 13 (12-20); Blood Urea Nitrogen 9 mg/dL (9-16); Calcium 8.8 mg/dL (8.4-10.2); Carbon Dioxide 23 mmol/L (22-29); Chloride 101 mmol/L (96-108); Creatinine Clr Calc Pharmacy 98.5; Estimated Glomerular Filt Rate > 60; Glucose Random 97 mg/dL (60-115); Potassium 3.9 mmol/L (3.3-5.1); Sodium 133 mmol/L (135-145)
[2023-02-01 21:47] LABS: Influenza A PCR NEGATIVE (Negative); Influenza B PCR NEGATIVE (Negative); Resp Syncy Virus RNA Qual PCR NEGATIVE (Negative); SARS COV2 PCR INHOUSE NEGATIVE (Negative)
[2023-02-01 23:21] VITALS: BP 122/59; PULSE 82; RESP 18; TEMP 37.1; O2SAT 96
[2023-02-01 23:37] LABS: Appearance Urine Cloudy; Color Urine Dark Yellow; Glucose Urine UA Negative (Negative); Leukocyte Esterase Urine Negative (Negative); Nitrite Urine Negative (Negative); Specific Gravity - Urine >= 1.030 (1.005-1.025); UMIC TRIGGER UACC YES; Urine Blood Negative (Negative); Urine Ketones Trace mg/dL (Negative); Urine Protein 30 (1+) mg/dL (Neg-Trace)
[2023-02-01 23:42] LABS: Bacteria Urine 1+ (None Seen); Hyaline Casts Urine 0-2 /LPF (0-2); WBC Urine 0-5 /HPF (0-5)
[2023-02-02 00:41] LABS: Erythrocyte Sedimentation Rate 38 MM/HR (0-20)
--- NOTE | 2023-02-02 00:48 | PM.IMHP ---
History of Present Illness Date of Service: 02/02/23 Chief Complaint: back pain 27F PMH IVDA (heroin, cocaine) presented with severe upper back pain, right sided, associated with sob, fevers, about 1-2 days, no obvious trauma. in ED patient septic with fever, leukocytosis, and tachycardia, crp elevated 14.8, no obivoius findings on cxr. patient does have history of MSSA bacteremia in 2017. Review of Systems Review of Systems: Yes all other systems are reviewed and are negative [facility] Social History Advance Directives: No Advance Directives Information Provided: Yes Meds Allergies Allergy/AdvReac Type Severity Reaction Status Date / Time No Known Allergies Allergy Verified 02/01/23 20:30 [No Known Allergies*] Active Medications: Current Medications Vancomycin HCl 1,000 mg/ (Sodium Chloride) 270 mls @ 270 mls/hr IV Q12H [facility] Pharmacy Consult (Consult Rx Vancomycin Dosing) 1 each MISCELLANE DAILY PRN PRN Reason: Consult order Physical Exam Vital Signs and Narrative: Vital Signs: Last Vital Signs Temp 98.7 F 02/01/23 23:21 Pulse 82 02/01/23 23:21 Resp 18 02/01/23 23:21 BP 122/59 L 02/01/23 23:21 Pulse Ox 96 02/01/23 23:21 O2 Del Method Room Air 02/01/23 23:21 BMI result Body Mass Index 25.7 General: AO X 3, in acute distress Resp: CTA bilateral, no accessory muscles used CVS: S1,S2,RRR GI: soft, non tender, non distended Neuro: motor grossly intact, alert Psych: appropriate affect, appropriate insight no point tenderness over spine Results Labs 02/01/23 21:00 02/01/23 21:00 Labs: Laboratory Results - last 24 hr 02/01/23 02/01/23 02/01/23 21:00 21:00 21:00 MCV 86.7 MCH 28.5 MCHC 32.9 RDW 14.5 Plt Count 183 MPV 9.4 Immature Gran % (Auto) 0.6 H Neut % (Auto) 83.9 H Lymph % (Auto) 9.6 L [place] % (Auto) 5.7 Eos % (Auto) 0.0 Baso % (Auto) 0.2 Lymph # (Auto) 1.2 [place] # (Auto) 0.7 Eos # (Auto) 0.0 Baso # (Auto) 0.0 Abs Immat Gran (auto) 0.07 H Absolute Neuts (auto) 10.3 H Absolute Nucleated RBC 0.000 Nucleated RBC % (auto) 0.0 ESR Anion Gap 13 Estim Creat Clear Calc 98.5 Estimated GFR > 60 Random Glucose 97 Lactic Acid 0.9 Calcium 8.8 Total Creatine Kinase 126 C-Reactive Protein 14.80 H Urine Color Urine Appearance Urine pH Ur Specific [place] Urine Protein Urine Glucose (UA) Urine Ketones Urine Blood Urine Nitrite Ur Leukocyte Esterase Urine RBC Urine WBC Ur Squamous Epith Cells Urine Bacteria Hyaline Casts Influenza Type A (PCR) Influenza Type B (PCR) RSV RNA Qual (PCR) SARS-CoV-2 RNA (RT-PCR) 02/01/23 02/01/23 02/01/23 21:00 21:00 23:24 MCV MCH MCHC RDW Plt Count MPV Immature Gran % (Auto) Neut % (Auto) Lymph % (Auto) [place] % (Auto) Eos % (Auto) Baso % (Auto) Lymph # (Auto) [place] # (Auto) Eos # (Auto) Baso # (Auto) Abs Immat Gran (auto) Absolute Neuts (auto) Absolute Nucleated RBC Nucleated RBC % (auto) ESR 38 H Anion Gap Estim Creat Clear Calc Estimated GFR Random Glucose Lactic Acid Calcium Total Creatine Kinase C-Reactive Protein Urine Color Dark Yellow Urine Appearance Cloudy Urine pH 6.0 Ur Specific [place] >= 1.030 H Urine Protein 30 (1+) H Urine Glucose (UA) Negative Urine Ketones Trace Urine Blood Negative Urine Nitrite Negative Ur Leukocyte Esterase Negative Urine RBC 3-5 H Urine WBC 0-5 Ur Squamous Epith Cells 11-20 Urine Bacteria 1+ Hyaline Casts 0-2 Influenza Type A (PCR) NEGATIVE Influenza Type B (PCR) NEGATIVE RSV RNA Qual (PCR) NEGATIVE SARS-CoV-2 RNA (RT-PCR) NEGATIVE Imaging Radiologist's Impressions: Impressions Chest X-Ray 02/01/23 21:34 IMPRESSION: Subsegmental atelectasis at the lung bases. Thoracic Spine X-Ray 02/01/23 21:34 IMPRESSION: Mild scoliosis and degenerative changes. Assessment and Plan (1) Sepsis: Status: Acute Plan 27F PMH IVDA (heroin, cocaine) presented with severe upper back pain sepsis in patient with IVDA iv vanc, follow up cultures, Id eval, check thoracic mri polysubstance dependence at risk for withdrawal addiction eval screen hiv, hcv low risk for dvt full code patient septic, at risk for bacteremia due to ivda therefore expected to require atleast 2 midnights inpatient Time Spent With Patient Time: Total time managing care of this patient today ____ minutes. Quality Stroke Does the patient have a stroke diagnosis?: No VTE Prior VTE?: No VTE Risk Level:: Medical - low VTE Device Contraindication: Treatment Not Indicated VTE Drug Contraindication: Treatment Not Indicated
[2023-02-02] MEDS: Piperacillin Sodium/Tazobactam 3.375 GM in 0.9 % Sodium Chloride 50 ML IV (01:02)
[2023-02-02] MEDS: Ibuprofen 800 MG TABLET PO ×3 (01:48→22:40)
[2023-02-02] MEDS: vancomycin HCL 1,500 MG in 0.9 % Sodium Chloride 500 ML 333.33 MG IV (01:49)
[2023-02-02 03:28] VITALS: BP 132/57; PULSE 99; RESP 20; TEMP 39.3; O2SAT 97
--- NOTE | 2023-02-02 03:34 | PC.NURSE ---
Addendum entered by Domenica Mejia 02/02/23 03:35: feeling hot, Pt face and chest area noted to be red, Pt febrile. Dr. Zhao notified via telephone, new orders given. Meds given as documented. Original Note: Pt reported some itchiness to back ,
[2023-02-02] MEDS: diphenhydrAMINE HCL 50 MG/ML VIAL 25 MG IVPUSH (03:39)
[2023-02-02] MEDS: Acetaminophen 325 MG TABLET 650 MG PO ×2 (03:39→11:00)
[2023-02-02 04:58] VITALS: BP 126/42; PULSE 75; RESP 18; TEMP 37.2; O2SAT 97
[2023-02-02 07:01] LABS: HBS Num1 0.88 mIU/mL (0-7.99); HBc Num1 0.25 S/CO (0.00-0.79); HBsAGNum1 0.41 S/CO (0.00-0.99); HIV AB/AG Nonreactive (Nonreactive); HIV Num 1 0.11 S/CO (0.00-0.99); Hepatitis B Core Antibody Nonreactive (Nonreactive); Hepatitis B Surface Antigen Negative (Negative); ~HepC Num1 15.89 S/CO (0.00-0.79); ~Hepatitis B Surface Antibody NONREACTIVE (Nonreactive); ~Hepatitis C Antibody Reactive (Nonreactive)
--- NOTE | 2023-02-02 08:42 | PHA.MEDREC ---
Pharmacy Consult ? Medication Reconciliation Pharmacy has completed the medication reconciliation.
--- NOTE | 2023-02-02 08:47 | PC.NURSE ---
Alert and oriented, resting quietly in bed. Respirations even and unlabored. Pt aware of plan for admission
[2023-02-02 09:34] VITALS: BP 115/58; PULSE 75; RESP 20; TEMP 37.2; O2SAT 98
--- NOTE | 2023-02-02 09:35 | MHC.RECOVRN ---
This check writer met w/ patient, patient had just been moved to Room 343. Patient awake, alert Patient reports 10/10 pain, patient reports starting to feel withdrawal, sweats, bodyaches, pain. Patient visibly grimacing, diaphoretic. [employer], patient reports using IV heroin, 2 bundles daily. Patient reports last use 02/01/23, 2 bundles. Patient states in the past was on MTD maintenance, would like to be referred back to clinic upon d/c from [facility]. Patient reports last MTD dose approximately 2 weeks ago, was on 70mg daily. Patient requesting medication for withdrawal. T/W reported s/s to Provider. Addiction/Recovery team to return when patients withdrawal is managed for more comprehensive NITA hx.
--- NOTE | 2023-02-02 10:02 | MHC.CLN ---
NUTRITION CONSULT FOR POOR PO. PATIENT HOMELESS WITH IVDA. REPORT OF WD SYMPTOMS. ADDING ENSURE BID TO PROMOTE INTAKE. PROVIDES 700 KCALS, 40 G PROTEIN. MONITOR WEEKLY.
[2023-02-02] MEDS: 0.9 % Sodium Chloride Flush 3 ML SYRINGE IVFLUSH ×3 (10:16→19:34)
[2023-02-02] MEDS: methADONE HCl 20 MG/2 ML ORAL.CONC 30 MG PO (10:16)
--- NOTE | 2023-02-02 10:27 | PM.EVENT ---
Event Note Date of Service: 02/02/23 Event Note: This patient is seen by hospitalist service already this morning ivdu seems anxious? asking for methadone -she says might go into withdrawal blood cultures 1/2 possitive:gram positive cocci in clusters. seen again this morning has body pains able to sit and moves all ext , non focal no heaaches or burry vision Physical exam and assessment and plan coordinated in H&p note-unchanged. Agree with the plan cotninue iv antibiotic Mri pending for back pain ,even though seems more muscle pain . id and addiction eval. Time Spent With Patient Time: Total time managing care of this patient today ____ minutes.
[2023-02-02 11:09] LABS: Creatinine Clr Calc Pharmacy 95.9; Estimated Glomerular Filt Rate > 60
--- NOTE | 2023-02-02 11:32 | PHA.PROG ---
Admission Date/Time: February 02, 2023 00:48 Indication: Sepsis, IVDU Weight in k.957 kg Adjusted body weight in K.6 kg [place] body weight in K.1 kg Obesity Dosing Indication % IBW: 127% Serum Creatinine - Last 168 Hours 02/01/23 02/02/23 21:00 Unknown Creatinine 0.74 0.76 Estimated CrCl and GFR - Last 168 Hours 02/01/23 02/02/23 21:00 Unknown Estim Creat Clear Calc 98.5 95.9 Estimated GFR > 60 > 60 Vancomycin Loading Dose: 1500 mg Current Vancomycin Dosing Regimen: 750 mg Q8H Date and Time for next Vancomycin Level to be drawn: 02/02 @ 1800 Pharmacist Comments on Vancomycin Plan: patient recieved an adequate load dose in the ER 02/02 @ 0149 Will start maintenance dose vanco 750 mg Q8H on 02/02 @ 1200. Expected AUC 533 with a trough of 17.4. level to be drawn prior to 3rd dose to access for safety while pharmacist is inhouse Pharmacy will monitor renal function daily. Jennifer Fournier PharmD Vancomycin dosing will take advantage of Premise as a clinical decision support tool that uses Bayesian modeling to calculate individual patient's pharmacokinetic parameters and forecast the patient's drug concentration time course with the target goal AUC 24 range of 400 - 600 mg/L/hr.
[2023-02-02 11:54] LABS: Amphetamine Screen Urine Not Detected (Not Detect); Barbiturates, Urine Not Detected (Not Detect); Benzodiazepines Screen Urine Not Detected (Not Detect); Cannabinoid Screen Urine Not Detected (Not Detect); Cocaine Screen Urine POSITIVE (Not Detect); Fentanyl, urine Not Detected (Not Detect); Opiate Screen Urine POSITIVE (Not Detect); Phencyclidine Screen Urine Not Detected (Not Detect)
--- NOTE | 2023-02-02 12:07 | MHC.CM.PN ---
met with pt who explains [place] she reports being covid vax dc plan per recovery team
[2023-02-02] MEDS: Lidocaine 4 % Patch ADH..PATCH 1 PATCH TRANSDERMA (12:35)
[2023-02-02] MEDS: vancomycin HCL 750 MG in 0.9 % Sodium Chloride 250 ML 265 MG IV ×2 (12:38→20:22)
[2023-02-02] MEDS: Morphine Sulfate 4 MG/ML CARTRIDGE IVPUSH ×3 (13:21→22:06)
[2023-02-02] MEDS: oxyCODONE HCl Immed Release 5 MG TABLET PO ×2 (13:51→23:59)
--- NOTE | 2023-02-02 15:20 | W.PM.IDCN ---
History of Present Illness Data of Consult Service Date: 02/02/23 Requesting physician: Fletcher Son Primary Care Provider: None Physician HPI Reason for consult: bacteremia She presents with fatigue and 8/10 back pain. She has temperature of 102.8 and tachycardia to 99 and has had this for last two days. BLood culture 2/2 gram positive cocci. She says she has Hepatitis C and is HIV negative. She denies h/o endocarditis or osteomyelitis spine. SHe uses IV drugs/ Review of Systems Review of Systems: Yes all other systems are reviewed and are negative [facility] Family History Family history: reviewed and not pertinent Social History Social History Household Members: None Housing: Homeless Do you presently have visiting nurse or other home services: No Alcohol intake: never Patient Tobacco Use Status: Current everyday Tobacco user Tobacco use type: Cigarette Cigarette Packs Per Day: 0.5 Cigarettes Per Day: 10.0 Smoked in Last 30 Days: Yes Patient Interested in Nicotine Replacement: No Use of substances other than those prescribed or required for medical reasons: Yes Substance Use Type: Crack/Cocaine and Heroin Substance Use Frequency: Daily Last Used Substance: Just Prior to Admission Currently Displaying Signs/Symptoms of Drug Intoxication Withdrawal: Yes Any prior treatment program specific to substance use: Yes Have you been hit, kicked, punched, or otherwise hurt by someone within the past year? If so, by whom?: No Do you feel safe in your current relationship?: Yes Is there a partner from a previous relationship who is making you feel unsafe now?: No Are you made to feel afraid or neglected: No Advance Directives: No Advance Directives Information Provided: Yes Do you have thoughts of harming others: None Do you have a plan to hurt others: No Plan Recently lost weight without trying: No Nutrition Risks: No Nutritional Risk Patient : No service: No Meds Allergies Allergy/AdvReac Type Severity Reaction Status Date / Time No Known Allergies Allergy Verified 02/01/23 20:30 [No Known Allergies*] Active Medications: Current Medications Acetaminophen (Acetaminophen 325 Mg Tablet) 650 mg PO Q6H PRN PRN Reason: moderate pain or fever Last Admin: 02/02/23 11:00 Dose: 650 mg Diphenhydramine HCl (Diphenhydramine Hcl 50 Mg/Ml Vial) 25 mg IVPUSH Q6H PRN PRN Reason: pruritis Last Admin: 02/02/23 03:39 Dose: 25 mg Vancomycin HCl 750 mg/ Sodium (Chloride) 265 mls @ 265 mls/hr IV Q8H [facility] Last Infusion: 02/02/23 13:46 Dose: Infused Ibuprofen (Ibuprofen 800 Mg Tablet) 800 mg PO Q8H PRN PRN Reason: Pain, Mild (Pain Scale 1-3) Last Admin: 02/02/23 10:50 Dose: 800 mg Lidocaine (Lidocaine 4 % Patch Adh..Patch) 1 patch TRANSDERMA DAILY [facility]; Protocol Last Admin: 02/02/23 12:35 Dose: 1 patch Morphine Sulfate (Morphine Sulfate 4 Mg/Ml Cartridge) 4 mg IVPUSH Q3H PRN; Protocol PRN Reason: Pain, Mild (Pain Scale 1-3) Last Admin: 02/02/23 13:21 Dose: 4 mg Oxycodone HCl (Oxycodone Hcl Immed Release 5 Mg Tablet) 5 mg PO Q6H PRN PRN Reason: Pain, Mild (Pain Scale 1-3) Last Admin: 02/02/23 13:51 Dose: 5 mg Pharmacy Consult (Consult Rx Vancomycin Dosing) 1 each MISCELLANE DAILY PRN PRN Reason: Consult order Sodium Chloride (0.9 % Sodium Chloride Flush 3 Ml Syringe) 3 ml IVFLUSH [facility] Last Admin: 02/02/23 10:16 Dose: 3 ml Home Medications Medication Instructions Recorded Confirmed Last Taken Type No Known Home Meds 02/02/23 02/02/23 Unknown History Physical Exam Vital Signs: Vital Signs: Last Vital Signs Temp 98.9 F 02/02/23 09:34 Pulse 75 02/02/23 09:34 Resp 20 02/02/23 09:34 BP 115/58 L 02/02/23 09:34 Pulse Ox 98 02/02/23 09:34 O2 Del Method Room Air 02/02/23 09:34 BMI result Body Mass Index 25.7 Const: General: cooperative HEENT: Head: Yes normal to inspection Face and sinus: Yes normal facial exam Mouth: Normal oral and palatal mucosa present Teeth and gingiva: dentition normal Eyes: General: appearance normal, both eyes and all related structures Pupils: Equal, round and reactive pupils present Resp: Effort & Inspection: normal respiratory effort Cardio: Rate: regular rate Rhythm: regular rhythm GI: Palpation (GI): Soft to palpation and nontender : General: Yes no CVA tenderness Back/Spine/Pelvis: Other: discomfort thoracic spine Back: no CVA tenderness Skin: General skin exam: no rashes or lesions noted Neuro: General: moves all extremities Cranial nerves: Yes Equal, round and reactive pupils present Extrem: General: Yes normal to inspection Psych: Appearance: grossly normal Results Labs 02/01/23 21:00 02/02/23 Unknown Labs: Short CBC 02/01/23 Range/Units 21:00 WBC 12.3 H (4.8-10.8) X10*3/uL Hgb 12.4 (12.0-16.0) g/dl Hct 37.7 (37.0-47.0) % Plt Count 183 (160-400) X10*3/uL BMP 02/01/23 02/02/23 21:00 Unknown Sodium 133 L Potassium 3.9 Chloride 101 Carbon Dioxide 23 BUN 9 Creatinine 0.74 0.76 Calcium 8.8 Cardiac Enzymes 02/01/23 Range/Units 21:00 Total Creatine Kinase 126 (26-140) U/L Urine 02/01/23 Range/Units 23:24 Urine Color Dark Yellow Urine Appearance Cloudy Urine pH 6.0 (5.0-9.0) Ur Specific [place] >= 1.030 H (1.005-1.025) Urine Protein 30 (1+) H (Neg-Trace) mg/dL Urine Glucose (UA) Negative (Negative) mg/dL Microbiology Microbiology Results: Microbiology 02/01/23 21:00 Blood - Venous Blood Culture - Preliminary Prelim: GPC Gram Stain only 02/01/23 23:28 Blood - Venous Blood Culture - Preliminary Prelim: GPC Gram Stain only Assessment and Plan (1) Sepsis: Status: Acute She has possible OM or diskiitis of spine through use of IV drugs. SHe has possible MRSA or strep Plan Continue Vancomycin alone, duration antibiotics to be determined. Stop Zosyn. Check MRI T spine evaluate abnormalities Check Hepatitis C viral load Check echo (pending). Time Spent With Patient Time: Total time managing care of this patient today ____ minutes.
--- NOTE | 2023-02-02 15:26 | MHC.RECOVRN ---
Met with pt to follow regarding pain management and withdrawal symptoms. Pt laying in bed, awake, alert, tearful, anxious. Reports withdrawal symptoms persist and requesting increase in methadone. Pt reports pain is better than before, the combination helped. Pt reports feeling as if she is being brushed off by staff and shouldn't be in pain in the hospital. Pt reassured, was able to become more calm. Discussed with Debbie Canseco APRN.
[2023-02-02] MEDS: LORazepam 1 MG TABLET PO (15:35)
--- NOTE | 2023-02-02 15:35 | HO.ADDICTCON ---
History of Present Illness Date of Service: 02/02/2023 Chief Complaint: Sepsis Reason for Consult: NITA Sources of Information: patient interviewed and chart reviewed HPI Narrative: Patient is a 27 year old female who presented to [facility] c/o severe back pain and found to be septic Reporting daily heroin and cocaine use. Seen by nail cutter multiple times throughout the day, and by this health technical writer X1. Methadone 30mg administered around 10am, seen by this health technical writer at 1pm, patient reporting back pain, withdrawal, and appearing overall anxious. Reporting 2 bundles of heroin IV QD. Long history of substance use, with reported engagement in OTP--unclear when and what dose. Clearly anxious, pressured speech, grimacing, yawning, and frequently shifting. Asking for more methadone, advised that 40mg is the max that can be administered day one, and 10mg would be ordred for later today. Review of Systems Constitutional: Reports as per HPI, Reports body ache(s), Reports chills and Reports malaise Diagnostics Vital Signs (24Hr): Vital Signs - 24 hr 02/01/23 20:37 02/01/23 23:21 02/02/23 03:28 Temperature 101.4 F H 98.7 F 102.8 F H Pulse Rate 97 82 99 Respiratory Rate 18 18 20 Blood Pressure 141/73 H 122/59 L 132/57 L Pulse Oximetry 97 96 97 Oxygen Delivery Method Room Air Room Air Room Air 02/02/23 04:58 02/02/23 09:34 Temperature 99 F 98.9 F Pulse Rate 75 75 Respiratory Rate 18 20 Blood Pressure 126/42 L 115/58 L Pulse Oximetry 97 98 Oxygen Delivery Method Room Air Room Air BMI result Body Mass Index 25.7 Labs 02/01/23 21:00 02/02/23 Unknown Labs: Laboratory Results - last 48 hr 02/01/23 02/01/23 02/01/23 21:00 21:00 21:00 WBC 12.3 H RBC 4.35 Hgb 12.4 Hct 37.7 MCV 86.7 MCH 28.5 MCHC 32.9 RDW 14.5 Plt Count 183 MPV 9.4 Immature Gran % (Auto) 0.6 H Neut % (Auto) 83.9 H Lymph % (Auto) 9.6 L [place] % (Auto) 5.7 Eos % (Auto) 0.0 Baso % (Auto) 0.2 Lymph # (Auto) 1.2 [place] # (Auto) 0.7 Eos # (Auto) 0.0 Baso # (Auto) 0.0 Abs Immat Gran (auto) 0.07 H Absolute Neuts (auto) 10.3 H Absolute Nucleated RBC 0.000 Nucleated RBC % (auto) 0.0 ESR Sodium 133 L Potassium 3.9 Chloride 101 Carbon Dioxide 23 Anion Gap 13 BUN 9 Creatinine 0.74 Estim Creat Clear Calc 98.5 Estimated GFR > 60 Random Glucose 97 Lactic Acid 0.9 Calcium 8.8 Total Creatine Kinase 126 C-Reactive Protein 14.80 H Urine Color Urine Appearance Urine pH Ur Specific [place] Urine Protein Urine Glucose (UA) Urine Ketones Urine Blood Urine Nitrite Ur Leukocyte Esterase Urine RBC Urine WBC Ur Squamous Epith Cells Urine Bacteria Hyaline Casts Urine Opiates Screen Urine Fentanyl Screen Ur Barbiturates Screen Ur Phencyclidine Scrn Ur Amphetamines Screen U Benzodiazepines Scrn Urine Cocaine Screen U Marijuana (THC) Screen Hep Bs Antigen Hep Bs Antibody Hep B Core Total Ab Hepatitis C Ab (EIA) HIV 1&2 Ab/P24 Ag 4thGn Influenza Type A (PCR) Influenza Type B (PCR) RSV RNA Qual (PCR) SARS-CoV-2 RNA (RT-PCR) 02/01/23 02/01/23 02/01/23 21:00 21:00 21:00 WBC RBC Hgb Hct MCV MCH MCHC RDW Plt Count MPV Immature Gran % (Auto) Neut % (Auto) Lymph % (Auto) [place] % (Auto) Eos % (Auto) Baso % (Auto) Lymph # (Auto) [place] # (Auto) Eos # (Auto) Baso # (Auto) Abs Immat Gran (auto) Absolute Neuts (auto) Absolute Nucleated RBC Nucleated RBC % (auto) ESR 38 H Sodium Potassium Chloride Carbon Dioxide Anion Gap BUN Creatinine Estim Creat Clear Calc Estimated GFR Random Glucose Lactic Acid Calcium Total Creatine Kinase C-Reactive Protein Urine Color Urine Appearance Urine pH Ur Specific [place] Urine Protein Urine Glucose (UA) Urine Ketones Urine Blood Urine Nitrite Ur Leukocyte Esterase Urine RBC Urine WBC Ur Squamous Epith Cells Urine Bacteria Hyaline Casts Urine Opiates Screen Urine Fentanyl Screen Ur Barbiturates Screen Ur Phencyclidine Scrn Ur Amphetamines Screen U Benzodiazepines Scrn Urine Cocaine Screen U Marijuana (THC) Screen Hep Bs Antigen Negative Hep Bs Antibody NONREACTIVE Hep B Core Total Ab Nonreactive Hepatitis C Ab (EIA) Reactive H HIV 1&2 Ab/P24 Ag 4thGn Nonreactive Influenza Type A (PCR) NEGATIVE Influenza Type B (PCR) NEGATIVE RSV RNA Qual (PCR) NEGATIVE SARS-CoV-2 RNA (RT-PCR) NEGATIVE 02/01/23 02/02/23 02/02/23 23:24 Unknown Unknown WBC RBC Hgb Hct MCV MCH MCHC RDW Plt Count MPV Immature Gran % (Auto) Neut % (Auto) Lymph % (Auto) [place] % (Auto) Eos % (Auto) Baso % (Auto) Lymph # (Auto) [place] # (Auto) Eos # (Auto) Baso # (Auto) Abs Immat Gran (auto) Absolute Neuts (auto) Absolute Nucleated RBC Nucleated RBC % (auto) ESR Sodium Potassium Chloride Carbon Dioxide Anion Gap BUN Creatinine 0.76 Estim Creat Clear Calc 95.9 Estimated GFR > 60 Random Glucose Lactic Acid Calcium Total Creatine Kinase C-Reactive Protein Urine Color Dark Yellow Urine Appearance Cloudy Urine pH 6.0 Ur Specific [place] >= 1.030 H Urine Protein 30 (1+) H Urine Glucose (UA) Negative Urine Ketones Trace Urine Blood Negative Urine Nitrite Negative Ur Leukocyte Esterase Negative Urine RBC 3-5 H Urine WBC 0-5 Ur Squamous Epith Cells 11-20 Urine Bacteria 1+ Hyaline Casts 0-2 Urine Opiates Screen POSITIVE H Urine Fentanyl Screen Not Detected Ur Barbiturates Screen Not Detected Ur Phencyclidine Scrn Not Detected Ur Amphetamines Screen Not Detected U Benzodiazepines Scrn Not Detected Urine Cocaine Screen POSITIVE H U Marijuana (THC) Screen Not Detected Hep Bs Antigen Hep Bs Antibody Hep B Core Total Ab Hepatitis C Ab (EIA) HIV 1&2 Ab/P24 Ag 4thGn Influenza Type A (PCR) Influenza Type B (PCR) RSV RNA Qual (PCR) SARS-CoV-2 RNA (RT-PCR) Imaging Radiology Impressions: ITS Impressions Chest X-Ray 02/01/23 21:34 IMPRESSION: Subsegmental atelectasis at the lung bases. Thoracic Spine X-Ray 02/01/23 21:34 IMPRESSION: Mild scoliosis and degenerative changes. Mental Status Exam Mental Status Exam Patient Appearance: Unkempt Level of Consciousness: Awake and Alert Patient Behavior: Restless (anxious) Mood Description: Anxious Medications Medications Current Medications Acetaminophen (Acetaminophen 325 Mg Tablet) 650 mg PO Q6H PRN PRN Reason: moderate pain or fever Last Admin: 04/24/23 11:00 Dose: 650 mg Diphenhydramine HCl (Diphenhydramine Hcl 50 Mg/Ml Vial) 25 mg IVPUSH Q6H PRN PRN Reason: pruritis Last Admin: 02/02/23 03:39 Dose: 25 mg Vancomycin HCl 750 mg/ Sodium (Chloride) 265 mls @ 265 mls/hr IV Q8H [facility] Last Infusion: 02/02/23 13:46 Dose: Infused Ibuprofen (Ibuprofen 800 Mg Tablet) 800 mg PO Q8H PRN PRN Reason: Pain, Mild (Pain Scale 1-3) Last Admin: 02/02/23 10:50 Dose: 800 mg Lidocaine (Lidocaine 4 % Patch Adh..Patch) 1 patch TRANSDERMA DAILY [facility]; Protocol Last Admin: 02/02/23 12:35 Dose: 1 patch Morphine Sulfate (Morphine Sulfate 4 Mg/Ml Cartridge) 4 mg IVPUSH Q3H PRN; Protocol PRN Reason: Pain, Mild (Pain Scale 1-3) Last Admin: 02/02/23 13:21 Dose: 4 mg Oxycodone HCl (Oxycodone Hcl Immed Release 5 Mg Tablet) 5 mg PO Q6H PRN PRN Reason: Pain, Mild (Pain Scale 1-3) Last Admin: 02/02/23 13:51 Dose: 5 mg Pharmacy Consult (Consult Rx Vancomycin Dosing) 1 each MISCELLANE DAILY PRN PRN Reason: Consult order Sodium Chloride (0.9 % Sodium Chloride Flush 3 Ml Syringe) [facility] Last Admin: 02/02/23 10:16 Dose: 3 ml Allergies Allergies Allergy/AdvReac Type Severity Reaction Status Date / Time No Known Allergies Allergy Verified 02/01/23 20:30 [No Known Allergies*] Assessment & Plan Assessment & Plan (1) Opioid use disorder: Status: Acute Code(s): F11.90 - Opioid use, unspecified, uncomplicated Assessment and Plan: methadone 30mg this AM and additional 10mg this evening tomorrow methadone 45mg--need to verify if patient has photo ID before continuing to titrate dose one time dose of PO lorazepam to address anxiety discussed with attending and pain medications adjusted to address patient's reported pain will continue to follow Total time managing care of this patient today _40___ minutes. PMFSH Family History Family history: reviewed and not pertinent Social History Social History Household Members: None Housing: Homeless Do you presently have visiting nurse or other home services: No Alcohol intake: never Patient Tobacco Use Status: Current everyday Tobacco user Tobacco use type: Cigarette Cigarette Packs Per Day: 0.5 Cigarettes Per Day: 10.0 Smoked in Last 30 Days: Yes Patient Interested in Nicotine Replacement: No Use of substances other than those prescribed or required for medical reasons: Yes Substance Use Type: Crack/Cocaine and Heroin Substance Use Frequency: Daily Last Used Substance: Just Prior to Admission Currently Displaying Signs/Symptoms of Drug Intoxication Withdrawal: Yes Any prior treatment program specific to substance use: Yes Have you been hit, kicked, punched, or otherwise hurt by someone within the past year? If so, by whom?: No Do you feel safe in your current relationship?: Yes Is there a partner from a previous relationship who is making you feel unsafe now?: No Are you made to feel afraid or neglected: No Advance Directives: No Advance Directives Information Provided: Yes Do you have thoughts of harming others: None Do you have a plan to hurt others: No Plan Recently lost weight without trying: No Nutrition Risks: No Nutritional Risk Patient : No service: No
[2023-02-02] MEDS: HYDROmorphone HCl 1 MG/ML SYRINGE IVPUSH ×2 (16:04→16:32)
--- NOTE | 2023-02-02 16:51 | PM.EVENT ---
Event Note Date of Service: 02/02/23 Event Note: patient could not stay laying down for MRI inspite of multiple IV meds. to do CT scan instead. Time Spent With Patient Time: Total time managing care of this patient today ____ minutes.
[2023-02-02] MEDS: methADONE HCl 20 MG/2 ML ORAL.CONC 10 MG PO (16:54)
[2023-02-02 17:09] VITALS: BP 136/73; PULSE 78; RESP 20; TEMP 36.3; O2SAT 100
[2023-02-02] MEDS: 0.9 % Sodium Chloride 1,000 ML 100 ML IVCONT (18:00)
[2023-02-02 18:39] LABS: Vancomycin Random 10.1 mcg/mL (15-20)
--- NOTE | 2023-02-02 19:16 | PC.NURSE ---
Pt continuously asking for more pain medications throughout this shift stating that nobody is helping her. Pacing in room and into hallways looking for her doctor and nurse. MD contacted several times throughout day by this RN to obtain additional medications if possible. Telesitter in room as pt stating she was going to leave if nobody was going to help her. Medications given to pt: Methadone x2, Ibuprofen, Tylenol, Lidoderm patch, Morphine x2, Oxycodone, Ativan, Dilaudid x2. Pt unable to do MRI even getting 2 doses of IV dilaudid. Pt refused CT scan this evening.
[2023-02-02 20:00] VITALS: RESP 16
[2023-02-02 22:40] VITALS: TEMP 39.4
[2023-02-03] VITALS: BP 119/58; PULSE 103; RESP 18; TEMP 39.8; O2SAT 94
[2023-02-03] MEDS: Acetaminophen 1,000 MG/100 ML PIGGYBACK 400 MG IV (00:22)
--- NOTE | 2023-02-03 00:31 | PC.NURSE ---
Pt febrile at 102.9 given Motrin 800mg at 2240. Temp increased to 103.7 gave Tylenol 650 mg at midnight and notfied Dr. Lopes, who ordered Tylenol 1000mg IV once.
[2023-02-03 04:00] VITALS: BP 130/60; PULSE 81; RESP 16; TEMP 36.1; O2SAT 97
[2023-02-03] MEDS: vancomycin HCL 750 MG in 0.9 % Sodium Chloride 250 ML 265 MG IV ×3 (04:09→19:55)
--- NOTE | 2023-02-03 04:23 | PC.NURSE ---
Pt temp at 0400 96.9
[2023-02-03] MEDS: 0.9 % Sodium Chloride 1,000 ML 100 ML IVCONT (05:42)
[2023-02-03] MEDS: Morphine Sulfate 4 MG/ML CARTRIDGE IVPUSH ×5 (06:10→23:49)
--- NOTE | 2023-02-03 07:00 | CA_ITS ---
Transthoracic Echocardiogram Patient (Last, First, Middle): Tabatha Swenson, Gender: Female Date of : 1995 Age: 27 Procedure Date: 02/03/2023 Procedure Type: Transthoracic Echocardiogram Location: [facility] Height: 157.48 cm Weight: 63.96 kg BSA: 1.65 m2 Heart Rate: bpm BP: 115 / 58 mmHg Data Specialist: Referring MD: Fletcher Son MD Symptoms: bacteremia/ivdu Study Quality: Adequate ECG Rhythm: Sinus Conclusions: - Normal left ventricular size, thickness, systolic function, and wall motion. The visually estimated ejection fraction is between 65-70%. Diastolic function is normal for age. - There is mild anterior and mild posterior tricuspid leaflet thickening. - No definitive vegetation noted. Findings Left Ventricle Normal left ventricular size, thickness, systolic function, and wall motion. The visually estimated ejection fraction is between 65-70%. Diastolic function is normal for age. Right Ventricle Normal right ventricular cavity size and systolic function. Atria The left atrium is moderately dilated. Aortic Valve The aortic valve structure and function is likely normal. There is no aortic valve stenosis. There is no aortic valve regurgitation. Mitral Valve Normal mitral valve structure and function. There is trace mitral valve regurgitation. There is no mitral valve stenosis. Pulmonic Valve The pulmonic valve is likely normal. Tricuspid Valve There is mild anterior and mild posterior tricuspid leaflet thickening. There is mild tricuspid valve regurgitation. Tricuspid regurgitation envelope is inadequate for calculation of right ventricular systolic pressure. Significantly elevated right atrial pressure. Great Vessels All visible segments of the aorta are normal in size. The visualized portions of the pulmonary artery and branches are normal. Venous The inferior vena cava is dilated and collapses less than 50% with inspiration. Pericardium/Pleural There is no evidence of pericardial effusion. Recommendations, Care & Conclusions Consider a SKINNY if clinically appropriate. Measurements 2D Linear Measurements Ao Root: 2.60 2.1-3.5 cm LVOT Diam: 2.00 3.0+(-)1.3 cm Mitral Valve MV Pk E: 1.01 MV PK A: 0.57 MV Decel Time: 194.00 E/A: 1.80 E'Lateral: 15.90 E'Medial: 11.90 E/E' Med: 8.50 E/E' Lat: 6.40 PHT: 57.00 MVA PHT: 3.86 Decel [place]: 5.20 Aortic Valve AoV Pk Dago: 1.44 AoV Mn Dago: 0.97 AoV VTI: 0.29 AoV Pk Grad: 8.00 Aov Mn Grad: 6.00 BRI Cont.VTI: 1.99 LVOT LVOT Pk Dago: 0.87 LVOT Mn Dago: 0.63 LVOT VTI: 0.18 LVOT Pk Grad: 3.00 LVOT Mn Grad: 2.00 LVOT Diam: 2.00 LVOT Area: 3.14 Diastolic Function MV Pk E: 1.01 MV Pk A: 0.57 E/A: 1.80 E'Medial: 11.90 E/E' Med: 8.50 E' Laterial: 15.90 E/E' Lat: 6.40 Tricuspid Valve TR Pk Dago: 2.88 TR Pk Grad: 33.00 Great Vessels Aorta Ao Root-2D: 2.60 2.0-3.7 cm Ao Asc: 2.60 2.1-3.4 cm Pulmonary Valve PV Pk Dago: 1.31 Peak PV Grad: 7.00 Updated in Other Vendor System with Status of Final Anthony Jenkins MD electronically signed on 02/03/2023 5:39:44 PM with status of Final
[2023-02-03] MEDS: 0.9 % Sodium Chloride Flush 3 ML SYRINGE IVFLUSH ×2 (07:42→19:56)
[2023-02-03] MEDS: methADONE HCl 20 MG/2 ML ORAL.CONC 45 MG PO (07:42)
[2023-02-03] MEDS: ondansetron HCL 4 MG/2 ML VIAL IVPUSH (07:43)
--- NOTE | 2023-02-03 08:27 | HO.PM.IMPN ---
Subjective Subjective Date of Service: 02/03/23 Interval History: f/u on sepsis,back pain in pt with IVDA c/o pain and nausea, Physical Exam Vital Signs: Vital Signs: Last Vital Signs Temp 96.9 F 02/03/23 04:00 Pulse 81 02/03/23 04:00 Resp 16 02/03/23 04:00 BP 130/60 02/03/23 04:00 Pulse Ox 97 02/03/23 04:00 O2 Del Method Room Air 02/03/23 04:00 BMI result Body Mass Index 25.7 Const: Other: General: AO X 3, no acute distress Resp: CTA bilateral CVS: S1,S2,RRR GI: +BS, NT, no distention Skin: No rash Neuro: motor grossly intact Psych: appropriate affect Objective Data Active Medications Acetaminophen (Acetaminophen 325 Mg Tablet) 650 mg PO Q6H PRN PRN Reason: moderate pain or fever Last Admin: 02/03/23 00:00 Dose: 650 mg Documented By: NEMO Diphenhydramine HCl (Diphenhydramine Hcl 50 Mg/Ml Vial) 25 mg IVPUSH Q6H PRN PRN Reason: pruritis Last Admin: 02/02/23 03:39 Dose: 25 mg Documented By: ARMANDO Vancomycin HCl 750 mg/ Sodium (Chloride) 265 mls @ 265 mls/hr IV Q8H [facility] Last Infusion: 02/03/23 05:01 Dose: 0 mls/hr Documented By: NEMO Sodium Chloride (Ns) 1,000 mls @ 100 mls/hr IVCONT .Q10H [facility] Last Admin: 02/03/23 05:42 Dose: 100 mls/hr Documented By: NEMO Ibuprofen (Ibuprofen 800 Mg Tablet) 800 mg PO Q8H PRN PRN Reason: Pain, Mild (Pain Scale 1-3) Last Admin: 02/02/23 22:40 Dose: 800 mg Documented By: NEMO Lidocaine (Lidocaine 4 % Patch Adh..Patch) 1 patch TRANSDERMA DAILY [facility]; Protocol Last Admin: 02/03/23 07:43 Dose: Not Given Documented By: ELIZABETH Non-Admin Reason: Patient Refused Methadone HCl (Methadone Hcl 20 Mg/2 Ml Oral.Conc) 45 mg PO DAILY [facility] Last Admin: 02/03/23 07:42 Dose: 45 mg Documented By: ELIZABETH Morphine Sulfate (Morphine Sulfate 4 Mg/Ml Cartridge) 4 mg IVPUSH Q3H PRN; Protocol PRN Reason: Pain, Mild (Pain Scale 1-3) Last Admin: 02/03/23 06:10 Dose: 4 mg Documented By: NEMO Ondansetron HCl (Ondansetron Hcl 4 Mg/2 Ml Vial) 4 mg IVPUSH Q8H PRN PRN Reason: Nausea and Vomiting Last Admin: 02/03/23 07:43 Dose: 4 mg Documented By: ELIZABETH Oxycodone HCl (Oxycodone Hcl Immed Release 5 Mg Tablet) 5 mg PO Q6H PRN PRN Reason: Pain, Mild (Pain Scale 1-3) Last Admin: 02/02/23 23:59 Dose: 5 mg Documented By: NEMO Pharmacy Consult (Consult Rx Vancomycin Dosing) 1 each MISCELLANE DAILY PRN PRN Reason: Consult order Sodium Chloride (0.9 % Sodium Chloride Flush 3 Ml Syringe) 3 ml IVFLUSH [facility] Last Admin: 02/03/23 07:42 Dose: 3 ml Documented By: ELIZABETH Labs 02/01/23 21:00 02/02/23 Unknown Labs: Laboratory Results - last 24 hr 02/01/23 02/02/23 02/02/23 21:00 18:10 Unknown Estim Creat Clear Calc 95.9 Estimated GFR > 60 Random Vancomycin 10.1 L Urine Opiates Screen Urine Fentanyl Screen Ur Barbiturates Screen Ur Phencyclidine Scrn Ur Amphetamines Screen U Benzodiazepines Scrn Urine Cocaine Screen U Marijuana (THC) Screen Hep Bs Antigen Negative Hep Bs Antibody NONREACTIVE Hep B Core Total Ab Nonreactive Hepatitis C Ab (EIA) Reactive H HIV 1&2 Ab/P24 Ag 4thGn Nonreactive 02/02/23 Unknown Estim Creat Clear Calc Estimated GFR Random Vancomycin Urine Opiates Screen POSITIVE H Urine Fentanyl Screen Not Detected Ur Barbiturates Screen Not Detected Ur Phencyclidine Scrn Not Detected Ur Amphetamines Screen Not Detected U Benzodiazepines Scrn Not Detected Urine Cocaine Screen POSITIVE H U Marijuana (THC) Screen Not Detected Hep Bs Antigen Hep Bs Antibody Hep B Core Total Ab Hepatitis C Ab (EIA) HIV 1&2 Ab/P24 Ag 4thGn Microbiology Microbiology Results: Microbiology 02/01/23 21:00 Blood Culture - Preliminary Blood - Venous Prelim: GPC Gram Stain only 02/01/23 23:28 Blood Culture - Preliminary Blood - Venous Prelim: GPC Gram Stain only Assessment and Plan (1) Opioid use disorder: Status: Acute (2) Sepsis: Status: Acute Plan 27F PMH IVDA (heroin, cocaine) presented with severe upper back pain sepsis in patient with IVDA iv vanc, follow up cultures, Id eval, check thoracic mri (she refused to have done yesterday and will reattempt today) polysubstance dependence at risk for withdrawal addiction med following and managing hiv -, hcv+ low risk for dvt, out of bed and ambulate full code need for inpatient:IV Abx for sepsis, work up for back pain with imaging as above Time Spent With Patient Time: Total time managing care of this patient today ____ minutes. Quality Stroke Does the patient have a stroke diagnosis?: No VTE Prior VTE?: No VTE Risk Level:: Medical - low VTE Device Contraindication: Treatment Not Indicated VTE Drug Contraindication: Treatment Not Indicated
--- NOTE | 2023-02-03 08:35 | MHC.RECOVRN ---
Attempted to have pt sign PINA for [facility] to obtain copy of ID, pt declined at this time, requesting to sleep.
[2023-02-03] MEDS: iohexoL 350 MG/ML 100 ML INFUS..BTL IV (11:46)
--- NOTE | 2023-02-03 13:56 | MHC.RECOVRN ---
PINA signed for [facility], pt last dose August 2022, 90 mg. Message left requesting copy of pts ID, awaiting documentation.
--- NOTE | 2023-02-03 15:01 | PM.IDPN ---
Subjective Subjective Date of Service: 02/03/23 Critical Care Time (minutes): 15 Comment: she is sleeping she refused MRI T spine yesterday and is scheduled for CT scan today Objective Data Labs 02/01/23 21:00 02/02/23 Unknown Labs: Laboratory Results - last 24 hr 02/02/23 18:10 Random Vancomycin 10.1 L Microbiology Microbiology Results: Microbiology 02/01/23 23:28 Blood - Venous Blood Culture - Preliminary Staphylococcus aureus 02/01/23 21:00 Blood - Venous Blood Culture - Preliminary Staphylococcus aureus Physical Exam Vital Signs: Vital Signs: Last Vital Signs Temp 96.9 F 02/03/23 04:00 Pulse 81 02/03/23 04:00 Resp 16 02/03/23 04:00 BP 130/60 02/03/23 04:00 Pulse Ox 97 02/03/23 04:00 O2 Del Method Room Air 02/03/23 04:00 BMI result Body Mass Index 25.7 Const: General: cooperative HEENT: Head: Yes normal to inspection Mouth: Normal oral and palatal mucosa present Resp: Effort & Inspection: normal respiratory effort Cardio: Rate: regular rate Rhythm: regular rhythm GI: Palpation (GI): Soft to palpation and nontender Assessment and Plan Assessment and plan (1) Staphylococcus aureus bacteremia: Status: Acute (2) Sepsis: Problem details: She has possible heart or spine infection Status: Acute Assessment and Plan: Needs six week IV antibiotics Vancomycin if MRSA Kefzol if MSSA Echo and CT spine,T spine 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 Time Spent With Patient Time: Total time managing care of this patient today ____ minutes.
[2023-02-03] MEDS: Acetaminophen 325 MG TABLET 650 MG PO ×2 (17:02)
[2023-02-03 18:04] VITALS: BP 137/84; PULSE 90; RESP 20; TEMP 38.2; O2SAT 98
[2023-02-03 18:20] VITALS: TEMP 37.8
[2023-02-03] MEDS: oxyCODONE HCl Immed Release 5 MG TABLET PO (18:41)
[2023-02-03] MEDS: Ibuprofen 800 MG TABLET PO (18:42)
[2023-02-03 20:18] VITALS: RESP 18
[2023-02-03] MEDS: diphenhydrAMINE HCL 50 MG/ML VIAL 25 MG IVPUSH (23:52)
--- NOTE | 2023-02-04 01:23 | PC.NURSE ---
Addendum entered by Ngozi Viera RN 02/04/23 06:36: Pt still in constant pain all night , prn meds has been given alternately, with short and minimal effect as per pt, pt sweaty and mostly feeling warm and with periods of agitation. Original Note: Received a message from pharmacy staff Jozef Rodriguez at 1900 question regarding pending creatinine and Vanco trough level to be drawn, [facility] called to come to draw blood sample, pt refused lab draw, pharmacy staff Jozef Rodriguez was updated.
[2023-02-04] MEDS: oxyCODONE HCl Immed Release 5 MG TABLET PO ×3 (01:48→16:24)
[2023-02-04] MEDS: Acetaminophen 325 MG TABLET 650 MG PO ×2 (02:10→16:23)
[2023-02-04] MEDS: 0.9 % Sodium Chloride 1,000 ML 100 ML IVCONT ×2 (03:20→13:37)
[2023-02-04] MEDS: vancomycin HCL 750 MG in 0.9 % Sodium Chloride 250 ML 265 MG IV (03:22)
[2023-02-04] MEDS: Morphine Sulfate 4 MG/ML CARTRIDGE IVPUSH ×4 (03:32→22:10)
[2023-02-04] MEDS: ondansetron HCL 4 MG/2 ML VIAL IVPUSH ×2 (04:22→22:10)
[2023-02-04] MEDS: Ibuprofen 800 MG TABLET PO ×2 (05:59→20:09)
[2023-02-04] MEDS: diphenhydrAMINE HCL 50 MG/ML VIAL 25 MG IVPUSH ×2 (05:59→21:23)
[2023-02-04] MEDS: methADONE HCl 20 MG/2 ML ORAL.CONC 50 MG PO (09:09)
[2023-02-04] MEDS: ceFAZolin Sodium/Dextrose,Iso 2 GM/50 ML PIGGYBACK IV ×2 (11:31→19:55)
--- NOTE | 2023-02-04 14:29 | HO.ADDICTPRO ---
Subjective Subjective Date of Service: 02/04/23 Reason For Visit: Sepsis Interim History: Chart reviewed and patient seen briefly--sleeping comfortably. This contract writer did not wake as notes indicated patient was up most of the evening c/o pain. Methadone 50mg this morning. interactive multimedia designer has verified that patient is able to return to [facility] where she was previously a patient. Referral has already been placed. Review of Systems Review of Systems: deferred --patient sleeping Diagnostics Vital Signs (24Hr): Vital Signs - 24 hr 02/03/23 18:04 02/03/23 18:20 02/03/23 20:18 Temperature 100.8 F H 100.1 F Pulse Rate 90 Respiratory Rate 20 18 Blood Pressure 137/84 Pulse Oximetry 98 Oxygen Delivery Method Room Air BMI result Body Mass Index 25.7 Labs 02/01/23 21:00 02/02/23 Unknown Labs: Laboratory Results - last 48 hr 02/02/23 18:10 Random Vancomycin 10.1 L Imaging Radiology Impressions: ITS Impressions Chest X-Ray 02/01/23 21:34 IMPRESSION: Subsegmental atelectasis at the lung bases. Thoracic Spine X-Ray 02/01/23 21:34 IMPRESSION: Mild scoliosis and degenerative changes. Lumbar Spine CT 02/03/23 11:44 IMPRESSION: 1. No evidence of acute fracture or traumatic subluxation of the lumbar spine. 2. 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 Most notably, there is moderate subcutaneous edema within the soft tissues of the back from T12-S1. No demonstrated discrete collection. Medications Medications Current Medications Acetaminophen (Acetaminophen 325 Mg Tablet) 650 mg PO Q6H PRN PRN Reason: moderate pain or fever Last Admin: 02/04/23 02:10 Dose: 650 mg Diphenhydramine HCl (Diphenhydramine Hcl 50 Mg/Ml Vial) 25 mg IVPUSH Q6H PRN PRN Reason: pruritis Last Admin: 02/04/23 05:59 Dose: 25 mg Sodium Chloride (Ns) 1,000 mls @ 100 mls/hr IVCONT .Q10H NADIA Last Admin: 02/04/23 13:37 Dose: 100 mls/hr Cefazolin Sodium/Dextrose (Ancef) 2 gm in 50 mls @ 100 mls/hr IV Q8H [facility]IA Last Infusion: 02/04/23 12:27 Dose: Infused Ibuprofen (Ibuprofen 800 Mg Tablet) 800 mg PO Q8H PRN PRN Reason: Pain, Mild (Pain Scale 1-3) Last Admin: 02/04/23 05:59 Dose: 800 mg Lidocaine (Lidocaine 4 % Patch Adh..Patch) 1 patch TRANSDERMA DAILY [facility]; Protocol Last Admin: 02/04/23 09:19 Dose: Not Given Methadone HCl (Methadone Hcl 20 Mg/2 Ml Oral.Conc) 50 mg PO DAILY [facility] Last Admin: 02/04/23 09:09 Dose: 50 mg Morphine Sulfate (Morphine Sulfate 4 Mg/Ml Cartridge) 4 mg IVPUSH Q3H PRN; Protocol PRN Reason: Pain, Mild (Pain Scale 1-3) Last Admin: 02/04/23 06:28 Dose: 4 mg Ondansetron HCl (Ondansetron Hcl 4 Mg/2 Ml Vial) 4 mg IVPUSH Q8H PRN PRN Reason: Nausea and Vomiting Last Admin: 02/04/23 04:22 Dose: 4 mg Oxycodone HCl (Oxycodone Hcl Immed Release 5 Mg Tablet) 5 mg PO Q6H PRN PRN Reason: Pain, Mild (Pain Scale 1-3) Last Admin: 02/04/23 09:10 Dose: 5 mg Pharmacy Consult (Consult Rx Vancomycin Dosing) 1 each MISCELLANE DAILY PRN PRN Reason: Consult order Sodium Chloride (0.9 % Sodium Chloride Flush 3 Ml Syringe) 3 ml IVFLUSH QSHIFT [facility] Last Admin: 02/04/23 09:17 Dose: Not Given Allergies Allergies Allergy/AdvReac Type Severity Reaction Status Date / Time No Known Allergies Allergy Verified 02/01/23 20:30 [No Known Allergies*] Assessment & Plan Assessment & Plan (1) Opioid use disorder: Status: Acute Code(s): F11.90 - Opioid use, unspecified, uncomplicated Assessment and Plan: will keep methadone at 50mg in AM for now and add 10mg in the evening will continue to follow Total time managing care of this patient today __15__ minutes.
--- NOTE | 2023-02-04 14:36 | MHC.RECOVRN ---
Pts referral sent to [facility].
--- NOTE | 2023-02-04 16:05 | HO.PM.IMPN ---
Subjective Subjective Date of Service: 02/04/23 Interval History: f/u on sepsis,back pain in pt with IVDA pain is a about the same, no neurological changes. Physical Exam Vital Signs: Vital Signs: Last Vital Signs Temp 100.1 F 02/03/23 18:20 Pulse 90 02/03/23 18:04 Resp 18 02/03/23 20:18 BP 137/84 02/03/23 18:04 Pulse Ox 98 02/03/23 18:04 O2 Del Method Room Air 02/03/23 18:04 BMI result Body Mass Index 25.7 Const: Other: General: AO X 3, no acute distress Resp: CTA bilateral CVS: S1,S2,RRR GI: +BS, NT, no distention Skin: No rash Neuro: motor grossly intact Psych: appropriate affect Objective Data Active Medications Acetaminophen (Acetaminophen 325 Mg Tablet) 650 mg PO Q6H PRN PRN Reason: moderate pain or fever Last Admin: 02/04/23 02:10 Dose: 650 mg Documented By: VJ Diphenhydramine HCl (Diphenhydramine Hcl 50 Mg/Ml Vial) 25 mg IVPUSH Q6H PRN PRN Reason: pruritis Last Admin: 02/04/23 05:59 Dose: 25 mg Documented By: VJ Sodium Chloride (Ns) 1,000 mls @ 100 mls/hr IVCONT .Q10H [facility] Last Admin: 02/04/23 13:37 Dose: 100 mls/hr Documented By: ISHMAEL Cefazolin Sodium/Dextrose (Ancef) 2 gm in 50 mls @ 100 mls/hr IV Q8H [facility] Last Infusion: 02/04/23 12:27 Dose: 100 mls/hr Documented By: ISHMAEL Ibuprofen (Ibuprofen 800 Mg Tablet) 800 mg PO Q8H PRN PRN Reason: Pain, Mild (Pain Scale 1-3) Last Admin: 02/04/23 05:59 Dose: 800 mg Documented By: VJ Lidocaine (Lidocaine 4 % Patch Adh..Patch) 1 patch TRANSDERMA DAILY [facility]; Protocol Last Admin: 02/04/23 09:19 Dose: Not Given Documented By: ISHMAEL Non-Admin Reason: Patient Refused Methadone HCl (Methadone Hcl 20 Mg/2 Ml Oral.Conc) 50 mg PO DAILY [facility] Last Admin: 02/04/23 09:09 Dose: 50 mg Documented By: ISHMAEL Methadone HCl (Methadone Hcl 20 Mg/2 Ml Oral.Conc) 10 mg PO DAILY@1999 [facility] Morphine Sulfate (Morphine Sulfate 4 Mg/Ml Cartridge) 4 mg IVPUSH Q3H PRN; Protocol PRN Reason: Pain, Mild (Pain Scale 1-3) Last Admin: 02/04/23 06:28 Dose: 4 mg Documented By: VJ Ondansetron HCl (Ondansetron Hcl 4 Mg/2 Ml Vial) 4 mg IVPUSH Q8H PRN PRN Reason: Nausea and Vomiting Last Admin: 02/04/23 04:22 Dose: 4 mg Documented By: VJ Oxycodone HCl (Oxycodone Hcl Immed Release 5 Mg Tablet) 5 mg PO Q6H PRN PRN Reason: Pain, Mild (Pain Scale 1-3) Last Admin: 02/04/23 09:10 Dose: 5 mg Documented By: ISHMAEL Pharmacy Consult (Consult Rx Vancomycin Dosing) 1 each MISCELLANE DAILY PRN PRN Reason: Consult order Sodium Chloride (0.9 % Sodium Chloride Flush 3 Ml Syringe) 3 ml IVFLUSH QSHIFT [facility] Last Admin: 02/04/23 09:17 Dose: Not Given Documented By: ISHMAEL Non-Admin Reason: IV Running Labs 02/01/23 21:00 02/02/23 Unknown Microbiology Microbiology Results: Microbiology 02/01/23 23:28 Blood Culture - Preliminary Blood - Venous Staphylococcus aureus 02/01/23 21:00 Blood Culture - Final Blood - Venous Staphylococcus aureus Assessment and Plan (1) Staphylococcus aureus bacteremia: Status: Acute (2) Sepsis: Status: Acute (3) Opioid use disorder: Status: Acute Plan 27F PMH IVDA (heroin, cocaine) presented with severe upper back pain sepsis in patient with IVDA Staph Aureus bacteremia Stop IV Vanco and start Kefzol 02/04 She is been refusing labs ct of back no collection, she doesn't want mri polysubstance dependence at risk for withdrawal addiction med following and managing hiv -, hcv+ low risk for dvt, out of bed and ambulate full code need for inpatient:IV Abx for sepsis, work up for back pain with imaging as above Time Spent With Patient Time: Total time managing care of this patient today ____ minutes. Quality Stroke Does the patient have a stroke diagnosis?: No VTE Prior VTE?: No VTE Risk Level:: Medical - low VTE Device Contraindication: Treatment Not Indicated VTE Drug Contraindication: Treatment Not Indicated
[2023-02-04] MEDS: 0.9 % Sodium Chloride Flush 3 ML SYRINGE IVFLUSH (19:56)
[2023-02-04] MEDS: methADONE HCl 20 MG/2 ML ORAL.CONC 10 MG PO (19:56)
[2023-02-04 21:28] VITALS: BP 136/79; PULSE 68; RESP 18; TEMP 36.2; O2SAT 98
[2023-02-05] MEDS: Acetaminophen 325 MG TABLET 650 MG PO (00:22)
[2023-02-05] MEDS: oxyCODONE HCl Immed Release 5 MG TABLET PO ×4 (00:22→18:04)
[2023-02-05 01:24] VITALS: RESP 18
[2023-02-05 01:25] VITALS: RESP 18
[2023-02-05] MEDS: Morphine Sulfate 4 MG/ML CARTRIDGE IVPUSH ×5 (03:06→21:50)
[2023-02-05] MEDS: ceFAZolin Sodium/Dextrose,Iso 2 GM/50 ML PIGGYBACK IV ×3 (03:12→20:17)
[2023-02-05] MEDS: Ibuprofen 800 MG TABLET PO ×2 (05:03→18:06)
[2023-02-05 06:58] VITALS: BP 144/83; PULSE 63; RESP 16; TEMP 36.6; O2SAT 97
--- NOTE | 2023-02-05 07:10 | P.PNIM_ITS ---
Subjective Subjective Date of Service: 02/05/23 Interval History: f/u on sepsis,back pain in pt with IVDA She reports the same level of pain although she does not seem uncomfortable. She did not allowed repeat blood draw for culture yesterday, but is agreeable today Physical Exam Vital Signs: Vital Signs: Last Vital Signs Temp 97.9 F 02/05/23 06:58 Pulse 63 02/05/23 06:58 Resp 16 02/05/23 06:58 BP 144/83 H 02/05/23 06:58 Pulse Ox 97 02/05/23 06:58 O2 Del Method Room Air 02/05/23 06:58 BMI result Body Mass Index 25.7 Const: Other: General: AO X 3, no acute distress Resp: CTA bilateral CVS: S1,S2,RRR GI: +BS, NT, no distention Skin: No rash Neuro: motor grossly intact, no spinal tenderness Psych: appropriate affect Objective Data Active Medications Acetaminophen (Acetaminophen 325 Mg Tablet) 650 mg PO Q6H PRN PRN Reason: moderate pain or fever Last Admin: 02/05/23 00:22 Dose: 650 mg Documented By: JUSTUS Diphenhydramine HCl (Diphenhydramine Hcl 50 Mg/Ml Vial) 25 mg IVPUSH Q6H PRN PRN Reason: pruritis Last Admin: 02/04/23 21:23 Dose: 25 mg Documented By: JUSTUS Cefazolin Sodium/Dextrose (Ancef) 2 gm in 50 mls @ 100 mls/hr IV Q8H [facility] Last Infusion: 02/05/23 04:11 Dose: 0 mls/hr Documented By: JUSTUS Ibuprofen (Ibuprofen 800 Mg Tablet) 800 mg PO Q8H PRN PRN Reason: Pain, Mild (Pain Scale 1-3) Last Admin: 02/05/23 05:03 Dose: 800 mg Documented By: JUSTUS Lidocaine (Lidocaine 4 % Patch Adh..Patch) 1 patch TRANSDERMA DAILY [facility]; Protocol Last Admin: 02/04/23 09:19 Dose: Not Given Documented By: ISHMAEL Non-Admin Reason: Patient Refused Methadone HCl (Methadone Hcl 20 Mg/2 Ml Oral.Conc) 50 mg PO DAILY [facility] Last Admin: 02/04/23 09:09 Dose: 50 mg Documented By: ISHMAEL Methadone HCl (Methadone Hcl 20 Mg/2 Ml Oral.Conc) 10 mg PO DAILY@1999 [facility] Last Admin: 02/04/23 19:56 Dose: 10 mg Documented By: JUSTUS Morphine Sulfate (Morphine Sulfate 4 Mg/Ml Cartridge) 4 mg IVPUSH Q3H PRN; Protocol PRN Reason: Pain, Mild (Pain Scale 1-3) Last Admin: 02/05/23 03:06 Dose: 4 mg Documented By: JUSTUS Ondansetron HCl (Ondansetron Hcl 4 Mg/2 Ml Vial) 4 mg IVPUSH Q8H PRN PRN Reason: Nausea and Vomiting Last Admin: 02/04/23 22:10 Dose: 4 mg Documented By: JUSTUS Oxycodone HCl (Oxycodone Hcl Immed Release 5 Mg Tablet) 5 mg PO Q6H PRN PRN Reason: Pain, Mild (Pain Scale 1-3) Last Admin: 02/05/23 06:23 Dose: 5 mg Documented By: JUSTUS Pharmacy Consult (Consult Rx Vancomycin Dosing) 1 each MISCELLANE DAILY PRN PRN Reason: Consult order Sodium Chloride (0.9 % Sodium Chloride Flush 3 Ml Syringe) 3 ml IVFLUSH [facility] Last Admin: 02/04/23 19:56 Dose: 3 ml Documented By: JUSTUS Labs 02/01/23 21:00 02/02/23 Unknown Microbiology Microbiology Results: Microbiology 02/01/23 23:28 Blood Culture - Preliminary Blood - Venous Staphylococcus aureus 02/01/23 21:00 Blood Culture - Final Blood - Venous Staphylococcus aureus Assessment and Plan (1) Staphylococcus aureus bacteremia: Status: Acute (2) Sepsis: Status: Acute (3) Opioid use disorder: Status: Acute Plan 27F PMH IVDA (heroin, cocaine) presented with severe upper back pain sepsis in patient with IVDA Staph Aureus bacteremia NOT MRSA Was on Vanco from admission and stopped on 02/04. Started Kefzol 02/04 She is been refusing labs ct of back no collection, she doesn't want mri repeat blood cultures today echo no vegetations polysubstance dependence at risk for withdrawal addiction med following and managing hiv -, hcv+ low risk for dvt, out of bed and ambulate full code need for inpatient:IV Abx for sepsis, bacteremia out of bed and ambulate Time Spent With Patient Time: Total time managing care of this patient today ____ minutes. Quality Stroke Does the patient have a stroke diagnosis?: No VTE Prior VTE?: No VTE Risk Level:: Medical - low VTE Device Contraindication: Treatment Not Indicated VTE Drug Contraindication: Treatment Not Indicated
--- NOTE | 2023-02-05 09:32 | MHC.CM.PN ---
Per MD rounds 6weeks IV ABX VANCO vs KEFZOL. A referral has been sent to [facility]. Clinical information has been sent for review. DP SNF IV ABX. BLS transport.
[2023-02-05] MEDS: methADONE HCl 20 MG/2 ML ORAL.CONC 50 MG PO (09:59)
[2023-02-05 11:30] LABS: Creatinine Clr Calc Pharmacy 119.5; Estimated Glomerular Filt Rate > 60
--- NOTE | 2023-02-05 11:52 | MHC.RECOVRN ---
This pattern chart writer met w/ patient, patient sitting up in bed, resting watching t.v, lights dim, door closed. Patient was resting comfortably, t/w dropped off some comforts, i.e. blanket, stress ball. Patient appreciative.
[2023-02-05 15:18] VITALS: BP 136/89; PULSE 76; RESP 17; TEMP 36.9; O2SAT 98
[2023-02-05] MEDS: 0.9 % Sodium Chloride Flush 3 ML SYRINGE IVFLUSH (15:48)
[2023-02-05] MEDS: methADONE HCl 20 MG/2 ML ORAL.CONC 10 MG PO (20:17)
[2023-02-05] MEDS: diphenhydrAMINE HCL 50 MG/ML VIAL 25 MG IVPUSH (21:50)
[2023-02-06 01:06] VITALS: RESP 18
[2023-02-06] MEDS: 0.9 % Sodium Chloride Flush 3 ML SYRINGE IVFLUSH ×3 (01:06→16:29)
[2023-02-06] MEDS: Morphine Sulfate 4 MG/ML CARTRIDGE IVPUSH ×6 (01:06→20:20)
[2023-02-06 03:04] VITALS: BP 145/82; PULSE 65; RESP 16; TEMP 36.6; O2SAT 98
[2023-02-06] MEDS: oxyCODONE HCl Immed Release 5 MG TABLET PO ×3 (03:23→20:11)
[2023-02-06] MEDS: Ibuprofen 800 MG TABLET PO ×2 (03:23→16:28)
[2023-02-06] MEDS: ceFAZolin Sodium/Dextrose,Iso 2 GM/50 ML PIGGYBACK IV ×3 (03:23→19:58)
[2023-02-06 05:26] LABS: Creatinine Clr Calc Pharmacy 119.5; Estimated Glomerular Filt Rate > 60
[2023-02-06] MEDS: methADONE HCl 20 MG/2 ML ORAL.CONC 50 MG PO (09:22)
--- NOTE | 2023-02-06 09:34 | HO.PM.IMPN ---
Subjective Subjective Date of Service: 02/06/23 Interval History: f/u on sepsis,back pain in pt with IVDA She is more comfortable and cooperative with care Physical Exam Vital Signs: Vital Signs: Last Vital Signs Temp 97.8 F 02/06/23 03:04 Pulse 65 02/06/23 03:04 Resp 16 02/06/23 03:04 BP 145/82 H 02/06/23 03:04 Pulse Ox 98 02/06/23 03:04 O2 Del Method Room Air 02/06/23 03:04 BMI result Body Mass Index 25.7 Const: Other: General: AO X 3, no acute distress Resp: CTA bilateral CVS: S1,S2,RRR GI: +BS, NT, no distention Skin: No rash Neuro: motor grossly intact, no spinal tenderness, tenderness paraspinal right side Psych: appropriate affect Objective Data Active Medications Acetaminophen (Acetaminophen 325 Mg Tablet) 650 mg PO Q6H PRN PRN Reason: moderate pain or fever Last Admin: 02/05/23 00:22 Dose: 650 mg Documented By: JUSTUS Diphenhydramine HCl (Diphenhydramine Hcl 50 Mg/Ml Vial) 25 mg IVPUSH Q6H PRN PRN Reason: pruritis Last Admin: 02/05/23 21:50 Dose: 25 mg Documented By: KATHERINE Cefazolin Sodium/Dextrose (Ancef) 2 gm in 50 mls @ 100 mls/hr IV Q8H [facility] Last Infusion: 02/06/23 04:00 Dose: 0 mls/hr Documented By: SUSAN Ibuprofen (Ibuprofen 800 Mg Tablet) 800 mg PO Q8H PRN PRN Reason: Pain, Mild (Pain Scale 1-3) Last Admin: 02/06/23 03:23 Dose: 800 mg Documented By: SUSAN Lidocaine (Lidocaine 4 % Patch Adh..Patch) 1 patch TRANSDERMA DAILY [facility]; Protocol Last Admin: 02/06/23 09:22 Dose: Not Given Documented By: ISHMAEL Non-Admin Reason: Patient Refused Methadone HCl (Methadone Hcl 20 Mg/2 Ml Oral.Conc) 50 mg PO DAILY [facility] Last Admin: 02/06/23 09:22 Dose: 50 mg Documented By: ISHMAEL Methadone HCl (Methadone Hcl 20 Mg/2 Ml Oral.Conc) 10 mg PO DAILY@1999 [facility] Last Admin: 02/05/23 20:17 Dose: 10 mg Documented By: KATHERINE Morphine Sulfate (Morphine Sulfate 4 Mg/Ml Cartridge) 4 mg IVPUSH Q3H PRN; Protocol PRN Reason: Pain, Mild (Pain Scale 1-3) Last Admin: 02/06/23 09:23 Dose: 4 mg Documented By: ISHMAEL Ondansetron HCl (Ondansetron Hcl 4 Mg/2 Ml Vial) 4 mg IVPUSH Q8H PRN PRN Reason: Nausea and Vomiting Last Admin: 02/04/23 22:10 Dose: 4 mg Documented By: FRANCISORALFrieda Oxycodone HCl (Oxycodone Hcl Immed Release 5 Mg Tablet) 5 mg PO Q6H PRN PRN Reason: Pain, Mild (Pain Scale 1-3) Last Admin: 02/06/23 03:23 Dose: 5 mg Documented By: SUSAN Pharmacy Consult (Consult Rx Vancomycin Dosing) 1 each MISCELLANE DAILY PRN PRN Reason: Consult order Sodium Chloride (0.9 % Sodium Chloride Flush 3 Ml Syringe) 3 ml IVFLUSH [facility] Last Admin: 02/06/23 09:22 Dose: 3 ml Documented By: ISHMAEL Labs 02/01/23 21:00 02/06/23 04:53 Labs: Laboratory Results - last 24 hr 02/05/23 02/06/23 11:08 04:53 Estim Creat Clear Calc 119.5 119.5 Estimated GFR > 60 > 60 Microbiology Microbiology Results: Microbiology 02/01/23 23:28 Blood Culture - Final Blood - Venous Staphylococcus aureus 02/01/23 21:00 Blood Culture - Final Blood - Venous Staphylococcus aureus Assessment and Plan (1) Staphylococcus aureus bacteremia: Status: Acute (2) Sepsis: Status: Acute (3) Opioid use disorder: Status: Acute Plan 27F PMH IVDA (heroin, cocaine) presented with severe upper back pain sepsis in patient with IVDA Staph Aureus bacteremia NOT MRSA Was on Vanco from admission and stopped on 02/04. Started Kefzol 02/04 She is been refusing labs ct of back no collection, she doesn't want mri repeat blood cultures 02/05 echo no vegetations she will need fpc IV Abx, a picc line when cultures negative polysubstance dependence at risk for withdrawal addiction med following and managing hiv -, hcv+ low risk for dvt, out of bed and ambulate full code need for inpatient:IV Abx for sepsis, bacteremia out of bed and ambulate Time Spent With Patient Time: Total time managing care of this patient today ____ minutes. Quality Stroke Does the patient have a stroke diagnosis?: No VTE Prior VTE?: No VTE Risk Level:: Medical - low VTE Device Contraindication: Treatment Not Indicated VTE Drug Contraindication: Treatment Not Indicated
--- NOTE | 2023-02-06 13:20 | MHC.CM.PN ---
Per MD rounds today, Patient may discharge next week. Plan is 6 weeks IV ABX. Patient will need to receive the IV ABX in a facility due to Substance abuse HX, [facility] has been referred. A clinical update has been sent to the facility. DP STR VIA BLS.
--- NOTE | 2023-02-06 14:00 | MHC.RECOVRN ---
Met with pt in 343 to follow up regarding methadone and plans for dc. When discussing [facility] IV abx, pt states I have to do it. Pt concerned about belongings that have been left in the community, however, is prioritizing health and agreeable to STR. Pt reports methadone dose is adequate, has been sleeping, denies withdrawal symptoms. Pt educated regarding methadone and prior to dc will be at once daily dosing. Verbalizes understanding. Pt denies questions or concerns at this time.
--- NOTE | 2023-02-06 16:44 | PC.NURSE ---
Pt has an 18 gauge iv in her left upper arm that is 5 days old and was put in under ultra sound. Site leaks at times but have been able to maintain. I.R. attempted today to change IV and was unable. After one attempt pt refused another attempt. Dr Cervantes aware that site may be lost.
[2023-02-06] MEDS: methADONE HCl 20 MG/2 ML ORAL.CONC 10 MG PO (19:59)
[2023-02-06] MEDS: ondansetron HCL 4 MG/2 ML VIAL IVPUSH (20:29)
[2023-02-06] MEDS: diphenhydrAMINE HCL 50 MG/ML VIAL 25 MG IVPUSH (20:29)
[2023-02-07] MEDS: oxyCODONE HCl Immed Release 5 MG TABLET PO ×3 (02:04→16:33)
[2023-02-07] MEDS: Ibuprofen 800 MG TABLET PO ×2 (02:07→17:52)
[2023-02-07] MEDS: 0.9 % Sodium Chloride Flush 3 ML SYRINGE IVFLUSH ×4 (02:13→20:33)
[2023-02-07 05:40] VITALS: RESP 18
[2023-02-07] MEDS: Morphine Sulfate 4 MG/ML CARTRIDGE IVPUSH (05:40)
[2023-02-07] MEDS: ceFAZolin Sodium/Dextrose,Iso 2 GM/50 ML PIGGYBACK IV ×3 (05:40→20:33)
[2023-02-07 06:45] LABS: Creatinine Clr Calc Pharmacy 99.9; Estimated Glomerular Filt Rate > 60
--- NOTE | 2023-02-07 07:05 | HO.PM.IMPN ---
Subjective Subjective Date of Service: 02/07/23 Interval History: f/u on sepsis,back pain in pt with IVDA comfortable, pain is controlled. No fever Physical Exam Vital Signs: Vital Signs: Last Vital Signs Temp 97.8 F 02/06/23 03:04 Pulse 65 02/06/23 03:04 Resp 18 02/07/23 05:40 BP 145/82 H 02/06/23 03:04 Pulse Ox 98 02/06/23 03:04 O2 Del Method Room Air 02/06/23 08:00 BMI result Body Mass Index 25.7 Const: Other: General: AO X 3, no acute distress Resp: CTA bilateral CVS: S1,S2,RRR GI: +BS, NT, no distention Skin: No rash Neuro: motor grossly intact, no spinal tenderness, tenderness paraspinal right side Psych: appropriate affect Objective Data Active Medications Acetaminophen (Acetaminophen 325 Mg Tablet) 650 mg PO Q6H PRN PRN Reason: moderate pain or fever Last Admin: 02/05/23 00:22 Dose: 650 mg Documented By: JUSTUS Benzocaine (Throat Lozenge, Medicated Lozenge) 1 lozenge MUCOUS MEM Q2H PRN PRN Reason: Sore Throat Diphenhydramine HCl (Diphenhydramine Hcl 50 Mg/Ml Vial) 25 mg IVPUSH Q6H PRN PRN Reason: pruritis Last Admin: 02/06/23 20:29 Dose: 25 mg Documented By: SULEIMAN Cefazolin Sodium/Dextrose (Ancef) 2 gm in 50 mls @ 100 mls/hr IV Q8H [facility] Last Infusion: 02/07/23 06:42 Dose: 0 mls/hr Documented By: SULEIMAN Ibuprofen (Ibuprofen 800 Mg Tablet) 800 mg PO Q8H PRN PRN Reason: Pain, Mild (Pain Scale 1-3) Last Admin: 02/07/23 02:07 Dose: 800 mg Documented By: SULEIMAN Lidocaine (Lidocaine 4 % Patch Adh..Patch) 1 patch TRANSDERMA DAILY [facility]; Protocol Last Admin: 02/06/23 09:22 Dose: Not Given Documented By: ISHMAEL Non-Admin Reason: Patient Refused Methadone HCl (Methadone Hcl 20 Mg/2 Ml Oral.Conc) 50 mg PO DAILY [facility] Last Admin: 02/06/23 19:58 Dose: 20 mg Documented By: SULEIMAN Methadone HCl (Methadone Hcl 20 Mg/2 Ml Oral.Conc) 10 mg PO DAILY@1999 [facility] Last Admin: 02/06/23 19:59 Dose: 10 mg Documented By: SULEIMAN Morphine Sulfate (Morphine Sulfate 4 Mg/Ml Cartridge) 4 mg IVPUSH Q3H PRN; Protocol PRN Reason: Pain, Mild (Pain Scale 1-3) Last Admin: 02/07/23 05:40 Dose: 4 mg Documented By: SULEIMAN Nicotine Polacrilex (Nicotine Polacrilex 2 Mg Gum) 2 mg BUCCAL Q2H PRN PRN Reason: Nicotine Cravings Ondansetron HCl (Ondansetron Hcl 4 Mg/2 Ml Vial) 4 mg IVPUSH Q8H PRN PRN Reason: Nausea and Vomiting Last Admin: 02/06/23 20:29 Dose: 4 mg Documented By: SULEIMAN Oxycodone HCl (Oxycodone Hcl Immed Release 5 Mg Tablet) 5 mg PO Q6H PRN PRN Reason: Pain, Mild (Pain Scale 1-3) Last Admin: 02/07/23 02:04 Dose: 5 mg Documented By: SULEIMAN Pharmacy Consult (Consult Rx Vancomycin Dosing) 1 each MISCELLANE DAILY PRN PRN Reason: Consult order Sodium Chloride (0.9 % Sodium Chloride Flush 3 Ml Syringe) 3 ml IVFLUSH [facility] Last Admin: 02/07/23 02:13 Dose: 3 ml Documented By: SULEIMAN Labs 02/01/23 21:00 02/07/23 05:09 Labs: Laboratory Results - last 24 hr 02/07/23 05:09 Estim Creat Clear Calc 99.9 Estimated GFR > 60 Microbiology Microbiology Results: Microbiology 02/05/23 11:11 Blood Culture - Preliminary Blood - Venous Prelim: GPC Gram Stain only 02/05/23 11:08 Blood Culture - Preliminary Blood - Venous Prelim: GPC Gram Stain only Assessment and Plan (1) Staphylococcus aureus bacteremia: Status: Acute (2) Opioid use disorder: Status: Acute (3) Sepsis: Status: Acute Plan 27F H IVDA (heroin, cocaine) presented with severe upper back pain sepsis in patient with IVDA Staph Aureus bacteremia NOT MRSA Was on Vanco from admission and stopped on 02/04. Started Kefzol 02/04 She is been refusing labs ct of back no collection, she doesn't want mri, benefit explained to her repeat blood cultures 02/05 still positive, repeat cultures today echo no vegetations she will need halfway IV Abx, request a picc line when cultures negative for at least 48 hours polysubstance dependence no longer risk of withdrawal addiction med following and managing methadone hiv -, hcv+ low risk for dvt, out of bed and ambulate full code need for inpatient:IV Abx for sepsis, bacteremia out of bed and ambulate Time Spent With Patient Time: Total time managing care of this patient today ____ minutes. Quality Stroke Does the patient have a stroke diagnosis?: No VTE Prior VTE?: No VTE Risk Level:: Medical - low VTE Device Contraindication: Treatment Not Indicated VTE Drug Contraindication: Treatment Not Indicated
--- NOTE | 2023-02-07 07:55 | PC.NURSE ---
Assumed care at 17:00. IV barely functional, difficult stick with leaky IV in left AC. I tried once and she is refusing other lines. Positional IV, seemed to get her medications despite leak. Nursing telephone instrument supervisor placed new 22 G in LAC. Reports she smokes 0.5 packs of cigarettes daily, can she get nicotine gum? she has been repeatedly asking staff to go outside and smoke. Patient refused vitals at times, refused some IV attempts but eventually consented, her ancef was delayed for 4 am dose due to lack of adequate access. Patient reports 04/20 - 07/21 right mid-back pain, treated with IV morphine, PO oxycodone and PO ibuprofen, all ordered for - pain, despite pain levels higher than ordered, ok per MD. Patient refused ice packs to back. IV benedryl and IV zofran at HS for wanting to sleep and for nausea. Patient seemed to be getting poor pain control from PRN medications, discussed with MD, planned to relay info to day team.
[2023-02-07 08:50] VITALS: BP 124/70; PULSE 70; RESP 20; TEMP 36.6; O2SAT 96
[2023-02-07] MEDS: ondansetron HCL 4 MG/2 ML VIAL IVPUSH (08:50)
--- NOTE | 2023-02-07 09:10 | PC.NURSE ---
This nursing correspondence section supervisor was notified by RN Rom Acevedo that the documentation slot for the 9 am 50 mg PO methadone was already documented on by a different nurse the prior night at 19:59 for 20 mg. Night RN was Jani Morales. This correspondence section supervisor contacted Jani, he stated that the computer shut down mid scan of the night dose of 10 mg, when it rebooted he rescanned the med (which was a 20 mg vial) and thinks he may have chosen the AM dose instead of the pm dose. This nursing correspondence section supervisor called the pharmacy and pharmacist Jozef confirmed that Hemant removed 20 mg on 02/06 and wasted 10 mg with witness. When Rom counted this morning there was no discrepancy. This correspondence section supervisor performed another inventory check with correspondence section supervisor Lore Winter and again no discrepancy. This correspondence section supervisor UNDID the AM dose that Hemant accidentally charted against. Then Rom was able to chart the AM dose properly.
[2023-02-07] MEDS: methADONE HCl 20 MG/2 ML ORAL.CONC 50 MG PO (09:24)
--- NOTE | 2023-02-07 12:26 | MHC.RECOVRN ---
Met with pt to follow up and provide support. Pt doing well with current methadone dose. Reports back pain is decreasing as time goes on. Pt requesting to go outside for a cigarette, educated on the hospital having a no smoking policy on all grounds. Pt tearful but understands. Pt denies other questions or concerns at this time..
[2023-02-07 15:45] VITALS: BP 139/67; PULSE 63; RESP 20; TEMP 36.1; O2SAT 95
[2023-02-07] MEDS: Acetaminophen 325 MG TABLET 650 MG PO (17:51)
[2023-02-07 19:48] VITALS: BP 136/67; PULSE 70; RESP 20; TEMP 36; O2SAT 96
[2023-02-07] MEDS: methADONE HCl 20 MG/2 ML ORAL.CONC 10 MG PO (20:33)
--- NOTE | 2023-02-07 22:26 | PM.EVENT ---
Event Note Date of Service: 05/09/23 Event Note: possible abscess/osteomyelitis back risk for paralysis and ,positive blood culture 02/05 also MSSA cant get PICC needs MRI but has refused if leaves AMA sign form and po Doxycycline 100 bid for six weeks can consider Daptomycin 8 mg/kg daily or renal dose adjusted if stays Time Spent With Patient Time: Total time managing care of this patient today ____ minutes.
[2023-02-07 23:54] VITALS: BP 119/63; PULSE 65; RESP 18; TEMP 36.1; O2SAT 97
[2023-02-08] MEDS: ceFAZolin Sodium/Dextrose,Iso 2 GM/50 ML PIGGYBACK IV ×3 (05:26→22:16)
[2023-02-08] MEDS: methADONE HCl 20 MG/2 ML ORAL.CONC 50 MG PO (09:04)
--- NOTE | 2023-02-08 09:42 | HO.PM.IMPN ---
Subjective Subjective Date of Service: 02/08/23 Interval History: f/u on sepsis,back pain in pt with IVDA comfortable, pain is controlled. No fever Physical Exam Vital Signs: Vital Signs: Last Vital Signs Temp 96.9 F 02/07/23 23:54 Pulse 65 02/07/23 23:54 Resp 18 02/07/23 23:54 BP 119/63 02/07/23 23:54 Pulse Ox 97 02/07/23 23:54 O2 Del Method Room Air 02/07/23 23:54 BMI result Body Mass Index 25.7 Const: Other: General: AO X 3, no acute distress Resp: CTA bilateral CVS: S1,S2,RRR GI: +BS, NT, no distention Skin: No rash Neuro: motor grossly intact, no spinal tenderness, tenderness paraspinal right side Psych: appropriate affect Objective Data Active Medications Acetaminophen (Acetaminophen 325 Mg Tablet) 650 mg PO Q6H PRN PRN Reason: moderate pain or fever Last Admin: 02/07/23 17:51 Dose: 650 mg Documented By: CLINT Benzocaine (Throat Lozenge, Medicated Lozenge) 1 lozenge MUCOUS MEM Q2H PRN PRN Reason: Sore Throat Diphenhydramine HCl (Diphenhydramine Hcl 50 Mg/Ml Vial) 25 mg IVPUSH Q6H PRN PRN Reason: pruritis Last Admin: 02/06/23 20:29 Dose: 25 mg Documented By: SULEIMAN Cefazolin Sodium/Dextrose (Ancef) 2 gm in 50 mls @ 100 mls/hr IV Q8H [facility] Last Infusion: 02/08/23 05:58 Dose: 0 mls/hr Documented By: LEE ANN Ibuprofen (Ibuprofen 800 Mg Tablet) 800 mg PO Q8H PRN PRN Reason: Pain, Mild (Pain Scale 1-3) Last Admin: 02/07/23 17:52 Dose: 800 mg Documented By: CLINT Lidocaine (Lidocaine 4 % Patch Adh..Patch) 1 patch TRANSDERMA DAILY [facility]; Protocol Last Admin: 02/08/23 09:09 Dose: Not Given Documented By: CLINT Non-Admin Reason: Patient Refused Methadone HCl (Methadone Hcl 20 Mg/2 Ml Oral.Conc) 50 mg PO DAILY [facility] Last Admin: 02/08/23 09:04 Dose: 50 mg Documented By: CLINT Methadone HCl (Methadone Hcl 20 Mg/2 Ml Oral.Conc) 10 mg PO DAILY@1999 [facility] Last Admin: 02/07/23 20:33 Dose: 10 mg Documented By: LEE ANN Nicotine Polacrilex (Nicotine Polacrilex 2 Mg Gum) 2 mg BUCCAL Q2H PRN PRN Reason: Nicotine Cravings Ondansetron HCl (Ondansetron Hcl 4 Mg/2 Ml Vial) 4 mg IVPUSH Q8H PRN PRN Reason: Nausea and Vomiting Last Admin: 02/07/23 08:50 Dose: 4 mg Documented By: CLINT Oxycodone HCl (Oxycodone Hcl Immed Release 5 Mg Tablet) 5 mg PO Q6H PRN PRN Reason: Pain, Moderate (Pain Scale 4-6 Last Admin: 02/07/23 16:33 Dose: 5 mg Documented By: CLINT Pharmacy Consult (Consult Rx Vancomycin Dosing) 1 each MISCELLANE DAILY PRN PRN Reason: Consult order Sodium Chloride (0.9 % Sodium Chloride Flush 3 Ml Syringe) 3 ml IVFLUSH QSMI [facility] Last Admin: 02/08/23 09:05 Dose: Not Given Documented By: CLINT Non-Admin Reason: Patient Refused Labs 02/01/23 21:00 02/07/23 05:09 Microbiology Microbiology Results: Microbiology 02/07/23 07:28 Blood Culture - Preliminary Blood - Venous No growth after 24 hours. 02/07/23 07:27 Blood Culture - Preliminary Blood - Venous No growth after 24 hours. 02/05/23 11:11 Blood Culture - Final Blood - Venous Staphylococcus aureus 02/05/23 11:08 Blood Culture - Final Blood - Venous Staphylococcus aureus Assessment and Plan (1) Staphylococcus aureus bacteremia: Status: Acute (2) Opioid use disorder: Status: Acute (3) Sepsis: Status: Acute Plan 27F PMH IVDA (heroin, cocaine) presented with severe upper back pain sepsis in patient with IVDA Staph Aureus bacteremia NOT MRSA Was on Vanco from admission and stopped on 02/04. Started Kefzol 02/04 She is been refusing labs ct of back no collection, she doesn't want mri, benefit explained to her repeat blood cultures 02/05 still positive, repeat cultures today echo no vegetations she will need shelter IV Abx, request a picc line when cultures negative for at least 48 hours polysubstance dependence no longer risk of withdrawal addiction med following and managing methadone hiv -, hcv+ low risk for dvt, out of bed and ambulate full code need for inpatient:IV Abx for sepsis, bacteremia out of bed and ambulate Time Spent With Patient Time: Total time managing care of this patient today ____ minutes. Quality Stroke Does the patient have a stroke diagnosis?: No VTE Prior VTE?: No VTE Risk Level:: Medical - low VTE Device Contraindication: Treatment Not Indicated VTE Drug Contraindication: Treatment Not Indicated
[2023-02-08] MEDS: oxyCODONE HCl Immed Release 5 MG TABLET PO ×2 (11:59→18:22)
[2023-02-08] MEDS: ondansetron HCL 4 MG/2 ML VIAL IVPUSH ×2 (12:56→18:21)
[2023-02-08 15:18] VITALS: BP 119/66; PULSE 60; RESP 20; TEMP 36.1; O2SAT 95
[2023-02-08] MEDS: Ibuprofen 800 MG TABLET PO (16:10)
[2023-02-08] MEDS: Acetaminophen 325 MG TABLET 650 MG PO (16:11)
[2023-02-08 20:00] VITALS: BP 120/72; PULSE 68; RESP 13; TEMP 36.3; O2SAT 97
[2023-02-08] MEDS: methADONE HCl 20 MG/2 ML ORAL.CONC 10 MG PO (22:15)
[2023-02-09 03:40] VITALS: BP 110/70; PULSE 60; RESP 16; TEMP 36.2; O2SAT 98
[2023-02-09] MEDS: oxyCODONE HCl Immed Release 5 MG TABLET PO ×2 (05:06→17:27)
[2023-02-09] MEDS: ceFAZolin Sodium/Dextrose,Iso 2 GM/50 ML PIGGYBACK IV ×3 (05:07→19:40)
[2023-02-09] MEDS: methADONE HCl 20 MG/2 ML ORAL.CONC 50 MG PO (08:40)
--- NOTE | 2023-02-09 08:42 | HO.PM.IMPN ---
Subjective Subjective Date of Service: 02/09/23 Interval History: f/u on sepsis,back pain in pt with IVDA comfortable, pain is controlled, no pain at the moment, no urinary or bowel incontience, she's up and ambulating Physical Exam Vital Signs: Vital Signs: Last Vital Signs Temp 97.2 F 02/09/23 03:40 Pulse 60 02/09/23 03:40 Resp 16 02/09/23 03:40 BP 110/70 02/09/23 03:40 Pulse Ox 98 02/09/23 03:40 O2 Del Method Room Air 02/09/23 03:40 BMI result Body Mass Index 25.7 Const: Other: General: AO X 3, no acute distress Resp: CTA bilateral CVS: S1,S2,RRR GI: +BS, NT, no distention Skin: No rash Neuro: motor grossly intact, no spinal tenderness, tenderness paraspinal right side Psych: appropriate affect Objective Data Active Medications Acetaminophen (Acetaminophen 325 Mg Tablet) 650 mg PO Q6H PRN PRN Reason: moderate pain or fever Last Admin: 02/08/23 16:11 Dose: 650 mg Documented By: CLINT Benzocaine (Throat Lozenge, Medicated Lozenge) 1 lozenge MUCOUS MEM Q2H PRN PRN Reason: Sore Throat Diphenhydramine HCl (Diphenhydramine Hcl 50 Mg/Ml Vial) 25 mg IVPUSH Q6H PRN PRN Reason: pruritis Last Admin: 02/06/23 20:29 Dose: 25 mg Documented By: SULEIMAN Cefazolin Sodium/Dextrose (Ancef) 2 gm in 50 mls @ 100 mls/hr IV Q8H [facility] Last Infusion: 02/09/23 05:49 Dose: 0 mls/hr Documented By: CICI Ibuprofen (Ibuprofen 800 Mg Tablet) 800 mg PO Q8H PRN PRN Reason: Pain, Mild (Pain Scale 1-3) Last Admin: 02/08/23 16:10 Dose: 800 mg Documented By: CLINT Lidocaine (Lidocaine 4 % Patch Adh..Patch) 1 patch TRANSDERMA DAILY [facility]; Protocol Last Admin: 02/09/23 08:34 Dose: Not Given Documented By: NELI Non-Admin Reason: Patient Refused Methadone HCl (Methadone Hcl 20 Mg/2 Ml Oral.Conc) 50 mg PO DAILY [facility] Last Admin: 02/09/23 08:40 Dose: 50 mg Documented By: NELI Methadone HCl (Methadone Hcl 20 Mg/2 Ml Oral.Conc) 10 mg PO DAILY@1999 [facility] Last Admin: 02/08/23 22:15 Dose: 10 mg Documented By: CICI Nicotine Polacrilex (Nicotine Polacrilex 2 Mg Gum) 2 mg BUCCAL Q2H PRN PRN Reason: Nicotine Cravings Ondansetron HCl (Ondansetron Hcl 4 Mg/2 Ml Vial) 4 mg IVPUSH Q8H PRN PRN Reason: Nausea and Vomiting Last Admin: 02/08/23 18:21 Dose: 4 mg Documented By: GRAZIC Oxycodone HCl (Oxycodone Hcl Immed Release 5 Mg Tablet) 5 mg PO Q6H PRN PRN Reason: Pain, Moderate (Pain Scale 4-6 Last Admin: 02/09/23 05:06 Dose: 5 mg Documented By: CICI Pharmacy Consult (Consult Rx Vancomycin Dosing) 1 each MISCELLANE DAILY PRN PRN Reason: Consult order Sodium Chloride (0.9 % Sodium Chloride Flush 3 Ml Syringe) 3 ml IVFLUSH QSHIFT [facility] Last Admin: 02/09/23 08:39 Dose: Not Given Documented By: NELI Non-Admin Reason: Patient Refused Labs 02/01/23 21:00 02/07/23 05:09 Microbiology Microbiology Results: Microbiology 02/07/23 07:28 Blood Culture - Preliminary Blood - Venous No growth after 24 hours. 02/07/23 07:27 Blood Culture - Preliminary Blood - Venous No growth after 24 hours. 02/05/23 11:11 Blood Culture - Final Blood - Venous Staphylococcus aureus 02/05/23 11:08 Blood Culture - Final Blood - Venous Staphylococcus aureus Assessment and Plan (1) Staphylococcus aureus bacteremia: Status: Acute (2) Opioid use disorder: Status: Acute (3) Sepsis: Status: Acute Plan 27F PMH IVDA (heroin, cocaine) presented with severe upper back pain sepsis in patient with IVDA Staph Aureus bacteremia NOT MRSA Was on Vanco from admission and stopped on 02/04. Started Kefzol 02/04 She is been refusing labs ct of back no collection, she continues to refuse MRIi, benefit explained to her, risk include abscess, osteomylitis and paralysis repeat blood cultures 02/05 still positive, repeat cultures today echo no vegetations she will need prison IV Abx, request a picc line when cultures negative for at least 48 hours and has a secured facility to go to polysubstance dependence no longer risk of withdrawal addiction med following and managing continue methadone hiv -, hcv+ (should pusuit anti-virall therapy on outpatient basis) low risk for dvt, out of bed and ambulate full code need for inpatient:IV Abx for sepsis, bacteremia and placement. At this point just waiting dispotion pending culture result out of bed and ambulate Time Spent With Patient Time: Total time managing care of this patient today ____ minutes. Quality Stroke Does the patient have a stroke diagnosis?: No VTE Prior VTE?: No VTE Risk Level:: Medical - low VTE Device Contraindication: Treatment Not Indicated VTE Drug Contraindication: Treatment Not Indicated
[2023-02-09] MEDS: methADONE HCl 20 MG/2 ML ORAL.CONC 10 MG PO ×2 (11:54→19:40)
--- NOTE | 2023-02-09 12:06 | MHC.RECOVRN ---
Met with pt to follow up and provide support. Pt laying in bed, diaphoretic, reports feeling shitty. Pt reports trying to sleep and being unable to, requesting to be left alone. Discussed increasing methadone, pt agreeable. Discussed with Debbie Canseco APRN.
--- NOTE | 2023-02-09 12:55 | MHC.CM.PN ---
per claudy pt is ready for dc no beds are avaliable for this pt at this time
[2023-02-09 15:11] VITALS: BP 125/64; PULSE 68; RESP 17; TEMP 35.8; O2SAT 97
[2023-02-09] MEDS: ondansetron HCL 4 MG/2 ML VIAL IVPUSH (17:24)
[2023-02-09] MEDS: 0.9 % Sodium Chloride Flush 3 ML SYRINGE IVFLUSH (19:40)
[2023-02-09 19:57] VITALS: BP 130/60; PULSE 70; RESP 18; TEMP 36; O2SAT 96
[2023-02-09] MEDS: diphenhydrAMINE HCL 50 MG/ML VIAL 25 MG IVPUSH (21:12)
[2023-02-10] MEDS: oxyCODONE HCl Immed Release 5 MG TABLET PO ×3 (03:29→20:32)
[2023-02-10] MEDS: Acetaminophen 325 MG TABLET 650 MG PO (03:29)
[2023-02-10] MEDS: ondansetron HCL 4 MG/2 ML VIAL IVPUSH ×3 (03:29→20:44)
[2023-02-10] MEDS: ceFAZolin Sodium/Dextrose,Iso 2 GM/50 ML PIGGYBACK IV ×3 (03:31→19:47)
[2023-02-10 04:49] VITALS: RESP 18
[2023-02-10 07:35] VITALS: BP 117/74; PULSE 57; RESP 16; TEMP 36.7
[2023-02-10] MEDS: methADONE HCl 20 MG/2 ML ORAL.CONC 60 MG PO (07:56)
[2023-02-10] MEDS: 0.9 % Sodium Chloride Flush 3 ML SYRINGE IVFLUSH ×3 (07:57→20:33)
[2023-02-10 15:09] VITALS: BP 127/58; PULSE 74; RESP 17; TEMP 36; O2SAT 95
--- NOTE | 2023-02-10 15:36 | HO.PM.IMPN ---
Subjective Subjective Date of Service: 02/10/23 Interval History: f/u on sepsis,back pain in pt with IVDA Review of Systems comfortable, pain is controlled, no pain at the moment, no urinary or bowel incontience, she's up and ambulating Physical Exam Vital Signs: Vital Signs: Last Vital Signs Temp 96.8 F 02/10/23 15:09 Pulse 74 02/10/23 15:09 Resp 17 02/10/23 15:09 BP 127/58 L 02/10/23 15:09 Pulse Ox 95 02/10/23 15:09 O2 Del Method Room Air 02/10/23 15:09 BMI result Body Mass Index 25.7 General: AO X 3, no acute distress Resp:? CTA bilateral CVS: S1,S2,RRR GI: +BS, NT, no distention Skin: No rash Neuro:? motor grossly intact, no spinal tenderness, tenderness paraspinal right side Psych: appropriate affect Objective Data Active Medications Acetaminophen (Acetaminophen 325 Mg Tablet) 650 mg PO Q6H PRN PRN Reason: moderate pain or fever Last Admin: 02/10/23 03:29 Dose: 650 mg Documented By: JUSTUS Benzocaine (Throat Lozenge, Medicated Lozenge) 1 lozenge MUCOUS MEM Q2H PRN PRN Reason: Sore Throat Diphenhydramine HCl (Diphenhydramine Hcl 50 Mg/Ml Vial) 25 mg IVPUSH Q6H PRN PRN Reason: pruritis Last Admin: 02/09/23 21:12 Dose: 25 mg Documented By: JUSTUS Cefazolin Sodium/Dextrose (Ancef) 2 gm in 50 mls @ 100 mls/hr IV Q8H [facility] Last Infusion: 02/10/23 13:05 Dose: 0 mls/hr Documented By: MOLLY Ibuprofen (Ibuprofen 800 Mg Tablet) 800 mg PO Q8H PRN PRN Reason: Pain, Mild (Pain Scale 1-3) Last Admin: 02/08/23 16:10 Dose: 800 mg Documented By: CLINT Lidocaine (Lidocaine 4 % Patch Adh..Patch) 1 patch TRANSDERMA DAILY [facility]; Protocol Last Admin: 02/10/23 07:58 Dose: Not Given Documented By: MOLLY Non-Admin Reason: Patient Refused Methadone HCl (Methadone Hcl 20 Mg/2 Ml Oral.Conc) 10 mg PO DAILY@1999 [facility] Last Admin: 02/09/23 19:40 Dose: 10 mg Documented By: JUSTUS Methadone HCl (Methadone Hcl 20 Mg/2 Ml Oral.Conc) 60 mg PO DAILY [facility] Last Admin: 02/10/23 07:56 Dose: 60 mg Documented By: MOLLY Nicotine Polacrilex (Nicotine Polacrilex 2 Mg Gum) 2 mg BUCCAL Q2H PRN PRN Reason: Nicotine Cravings Ondansetron HCl (Ondansetron Hcl 4 Mg/2 Ml Vial) 4 mg IVPUSH Q8H PRN PRN Reason: Nausea and Vomiting Last Admin: 02/10/23 12:40 Dose: 4 mg Documented By: MOLLY Oxycodone HCl (Oxycodone Hcl Immed Release 5 Mg Tablet) 5 mg PO Q6H PRN PRN Reason: Pain, Moderate(Pain Scale 4-7) Last Admin: 02/10/23 12:40 Dose: 5 mg Documented By: MOLLY Pharmacy Consult (Consult Rx Vancomycin Dosing) 1 each MISCELLANE DAILY PRN PRN Reason: Consult order Sodium Chloride (0.9 % Sodium Chloride Flush 3 Ml Syringe) 3 ml IVFLUSH QSHIFT [facility] Last Admin: 02/10/23 07:57 Dose: 3 ml Documented By: MOLLY Labs 02/01/23 21:00 02/07/23 05:09 Assessment and Plan (1) Staphylococcus aureus bacteremia: Status: Acute Plan 27F [facility] IVDA (heroin, cocaine) presented with severe upper back pain sepsis in patient with IVDA Staph Aureus bacteremia NOT MRSA Was on Vanco from admission and stopped on 02/04. Started? Kefzol 02/04 She is been refusing labs ct of back no collection,? she continues to refuse MRIi, benefit explained to her, risk include abscess, osteomylitis and paralysis repeat blood cultures 02/05 still positive, repeat cultures today echo no vegetations she will need [facility] IV Abx, request a picc line when cultures negative for at least 48 hours and has a secured facility to go to polysubstance dependence no longer risk of withdrawal addiction med following and managing continue methadone hiv -,? hcv+ (should pusuit anti-virall therapy on outpatient basis) low risk for dvt, out of bed and ambulate full code need for inpatient:IV Abx? for sepsis, bacteremia and placement. At this point just waiting dispotion pending culture result inpatient need:mssa bacteremia -need iv antibioics and wait for blood culture@72 hrs Time Spent With Patient Time: Total time managing care of this patient today ____ minutes. Quality Stroke Does the patient have a stroke diagnosis?: No VTE Prior VTE?: No VTE Risk Level:: Medical - low VTE Device Contraindication: Treatment Not Indicated VTE Drug Contraindication: Treatment Not Indicated
[2023-02-10] MEDS: Ibuprofen 800 MG TABLET PO (18:20)
--- NOTE | 2023-02-10 19:08 | HO.ADDICTPRO ---
Subjective Subjective Date of Service: 02/10/23 Reason For Visit: Sepsis Interim History: Patient seen in follow up Awake, alert, blunted affect Upset she can not smoke a cigarette Aware that discharge is pending--awaiting midline placement Currently methadone at 60mg in AM and 10mg in evening, previously discussed that at time of discharge dose would be combined to 70mg QD. Comfortable with this dose, denies any withdrawal sx. Referral already in place with [facility] Review of Systems Constitutional: Reports as per [facility] Mental Status Exam Mental Status Exam Patient Appearance: Unkempt Affect Description: Blunted Judgement: Good Diagnostics Vital Signs (24Hr): Vital Signs - 24 hr 02/09/23 19:57 02/10/23 04:49 02/10/23 07:35 Temperature 96.8 F 98.1 F Pulse Rate 70 57 Respiratory Rate 18 18 16 Blood Pressure 130/60 117/74 Pulse Oximetry 96 Oxygen Delivery Method Room Air Room Air 02/10/23 15:09 Temperature 96.8 F Pulse Rate 74 Respiratory Rate 17 Blood Pressure 127/58 L Pulse Oximetry 95 Oxygen Delivery Method Room Air BMI result Body Mass Index 25.7 Labs 02/01/23 21:00 02/07/23 05:09 Imaging Radiology Impressions: ITS Impressions Chest X-Ray 02/01/23 21:34 IMPRESSION: Subsegmental atelectasis at the lung bases. Thoracic Spine X-Ray 02/01/23 21:34 IMPRESSION: Mild scoliosis and degenerative changes. Lumbar Spine CT 02/03/23 11:44 IMPRESSION: 1. No evidence of acute fracture or traumatic subluxation of the lumbar spine. 2. 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 Most notably, there is moderate subcutaneous edema within the soft tissues of the back from T12-S1. No demonstrated discrete collection. Medications Medications Current Medications Acetaminophen (Acetaminophen 325 Mg Tablet) 650 mg PO Q6H PRN PRN Reason: moderate pain or fever Last Admin: 02/10/23 03:29 Dose: 650 mg Benzocaine (Throat Lozenge, Medicated Lozenge) 1 lozenge MUCOUS MEM Q2H PRN PRN Reason: Sore Throat Diphenhydramine HCl (Diphenhydramine Hcl 50 Mg/Ml Vial) 25 mg IVPUSH Q6H PRN PRN Reason: pruritis Last Admin: 02/09/23 21:12 Dose: 25 mg Cefazolin Sodium/Dextrose (Ancef) 2 gm in 50 mls @ 100 mls/hr IV Q8H [facility] Last Infusion: 02/10/23 13:05 Dose: Infused Ibuprofen (Ibuprofen 800 Mg Tablet) 800 mg PO Q8H PRN PRN Reason: Pain, Mild (Pain Scale 1-3) Last Admin: 02/10/23 18:20 Dose: 800 mg Lidocaine (Lidocaine 4 % Patch Adh..Patch) 1 patch TRANSDERMA DAILY [facility]; Protocol Last Admin: 02/10/23 07:58 Dose: Not Given Methadone HCl (Methadone Hcl 20 Mg/2 Ml Oral.Conc) 10 mg PO DAILY@1999 [facility] Last Admin: 02/09/23 19:40 Dose: 10 mg Methadone HCl (Methadone Hcl 20 Mg/2 Ml Oral.Conc) 60 mg PO DAILY [facility] Last Admin: 02/10/23 07:56 Dose: 60 mg Nicotine Polacrilex (Nicotine Polacrilex 2 Mg Gum) 2 mg BUCCAL Q2H PRN PRN Reason: Nicotine Cravings Ondansetron HCl (Ondansetron Hcl 4 Mg/2 Ml Vial) 4 mg IVPUSH Q8H PRN PRN Reason: Nausea and Vomiting Last Admin: 02/10/23 12:40 Dose: 4 mg Oxycodone HCl (Oxycodone Hcl Immed Release 5 Mg Tablet) 5 mg PO Q6H PRN PRN Reason: Pain, Moderate(Pain Scale 4-7) Last Admin: 02/10/23 12:40 Dose: 5 mg Pharmacy Consult (Consult Rx Vancomycin Dosing) 1 each MISCELLANE DAILY PRN PRN Reason: Consult order Sodium Chloride (0.9 % Sodium Chloride Flush 3 Ml Syringe) 3 ml IVFLUSH QSHIFT [facility] Last Admin: 02/10/23 18:20 Dose: 3 ml Allergies Allergies Allergy/AdvReac Type Severity Reaction Status Date / Time No Known Allergies Allergy Verified 02/01/23 20:30 [No Known Allergies*] Assessment & Plan Assessment & Plan (1) Opioid use disorder: Status: Acute Code(s): F11.90 - Opioid use, unspecified, uncomplicated Assessment and Plan: methadone to continue at [facility] provided with change of clothes and therapeutic items such as coloring and stress ball Total time managing care of this patient today __15__ minutes.
[2023-02-10] MEDS: methADONE HCl 20 MG/2 ML ORAL.CONC 10 MG PO (19:46)
[2023-02-10 19:53] VITALS: BP 129/60; PULSE 73; RESP 18; TEMP 36.4; O2SAT 96
[2023-02-10 20:00] VITALS: BP 162/64
[2023-02-10] MEDS: diphenhydrAMINE HCL 50 MG/ML VIAL 25 MG IVPUSH (20:31)
--- NOTE | 2023-02-11 04:25 | PC.NURSE ---
Patient reported pain at iv site. This RN attempted to establish a new access for IV Cefazolin, pt refused and asked to be left alone to sleep. Will reattempt in half hour.
[2023-02-11] MEDS: oxyCODONE HCl Immed Release 5 MG TABLET PO ×2 (04:27→13:28)
[2023-02-11] MEDS: methADONE HCl 20 MG/2 ML ORAL.CONC 60 MG PO (09:15)
[2023-02-11] MEDS: Ibuprofen 800 MG TABLET PO (09:19)
[2023-02-11] MEDS: Acetaminophen 325 MG TABLET 650 MG PO (09:20)
--- NOTE | 2023-02-11 10:19 | PC.NURSE ---
Talked with microbiology. 72 hours of no growth on last set of blood cultures. Ok to go down to IR for PICC placement.
--- NOTE | 2023-02-11 12:21 | HO.PICC ---
PICC Line Insertion NPICC Diagnosis: Bacteremia Indication: terminal system operator antibiotics Pertinent Labs: Reviewed Technique: Following informed consent including risks, benefits and alternatives and using sterile technique including cap and mask, sterile gown, glove and drape, the left arm was prepped and draped in the usual sterile fashion of full barrier technique with CHG. Following completion of [place] Protocol the skin and soft tissues were anesthetized with 1% Lidocaine plain. Using ultrasound guidance, the left basilic vein access was obtained in a single attempt by this RN. Over an 0.018 wire through peel-away sheath, a Single lumen 4 [place] PASV PICC line was positioned. Catheter length is 40 cm internal length, 1 cm external length, for a total trimmed length of 41 cm. The procedure was performed in S272. Tip verification was performed by Sam Lopez with Precious 3CG. Tip located in SVC. Ultrasound was used to document vein patency and for needle entry. A formal ultrasound picture and cardiac rhythm strip was recorded. Vascular Joint Creaser has released the line for use and it is currently dressed with a StatLock, Tegaderm, and CHG disc. Verification has been performed for blood return and line patency. Arm Circumference: 31 cm Equipment: [employer] PowerPICC Solo Catheter Type: 4 [place] single lumen PASV PICC Lot #: [id number]
--- NOTE | 2023-02-11 13:07 | MHC.CM.PN ---
pt to be dcd to [facility] today at 2;30 last dose letter went with pt
[2023-02-11] MEDS: ceFAZolin Sodium/Dextrose,Iso 2 GM/50 ML PIGGYBACK IV (13:17)
[2023-02-11] MEDS: ondansetron HCL 4 MG/2 ML VIAL IVPUSH (13:28)
--- NOTE | 2023-02-11 13:31 | PM.DS ---
DS: Providers Provider Date of Service: 02/11/23 Date of admission: 02/02/23 00:48 Date of discharge: 02/11/23 Primary care physician: None Physician Consults: 02/02/23 00:47 Addiction Medicine Routine Consulting Provider: Addiction Covering Reason for consultation: opiates, cocaine Consult to Infectious Diseases Routine Consulting Provider: [facility] [place] Infectious Disease Reason for consultation: sepsis ivda Attending physician on discharge: Fletcher Son Discharging clinician: Fletcher Son DS: Diagnosis Discharge Diagnosis (1) Opioid use disorder: Status: Acute DS: Summary Hospital Course Hospital Course: 27F PMH IVDA (heroin, cocaine) presented with severe upper back pain, right sided, associated with sob, fevers, about 1-2 days, no obvious trauma. in ED patient septic with fever, leukocytosis, and tachycardia, crp elevated 14.8, no obivoius findings on cxr. patient does have history of MSSA bacteremia in 2017. Hospital course: Patient admitted for IVDA (heroin, cocaine) presented with severe upper back pain-patient was started on IV antibiotics,pain meds ,blood cultures sent ,ct of back no collection,? she continues to refuse MRI, benefit explained to her, risk include abscess, osteomylitis and paralysis. Subsequently patient blood culture came back Staph Aureus bacteremia (NOT MRSA), repeat blood cultures negative @72 hrs . tranthoracic echo no vegetations. d/w ID- recomended 4 weeks iv cefazolin( end date 03/13/23)- consider moniter cbc ,bmp,esr ,crp,lft's weekly while on antibiotics . in addition hiv -,? hcv+ (should pusuit anti-viraltherapy on outpatient basis). polysubstance dependence: no longer risk of withdrawal,addiction med following -on methadone. Above management discussed the patient detail and she understand and in agreement with the above plan. time spent 50 min. Time Spent with Patient Time attestation: Total time managing care of this patient today ____ minutes. Discharge coordination time: Greater than 30 minutes Quality: Safe Use of Opioids Does Pt have an Active Cancer Diagnosis on the Problem List?: No Quality: Stroke Does the patient have a stroke diagnosis?: No Physical Exam Vital Signs: Vital Signs: Last Vital Signs Temp 97.5 F 02/10/23 19:53 Pulse 73 02/10/23 19:53 Resp 18 02/10/23 19:53 BP 162/64 H 02/10/23 20:00 Pulse Ox 96 02/10/23 19:53 O2 Del Method Room Air 02/10/23 19:53 BMI result Body Mass Index 25.7 General: AO X 3, no acute distress Resp:? CTA bilateral CVS: S1,S2,RRR GI: +BS, NT, no distention Skin: No rash Neuro:? motor grossly intact, no spinal tenderness, tenderness paraspinal right side Psych: appropriate affect DS: Data Data Completed and Pending Labs on day of discharge: Preliminary micro results at discharge 02/07/23 07:28 Blood Culture - Preliminary Blood - Venous No growth after 48 hours. 02/07/23 07:27 Blood Culture - Preliminary Blood - Venous No growth after 48 hours. Imaging Chest x-ray: Radiologist's impression: ITS Impressions Chest X-Ray 02/01/23 21:34 IMPRESSION: Subsegmental atelectasis at the lung bases. Thoracic Spine X-Ray 02/01/23 21:34 IMPRESSION: Mild scoliosis and degenerative changes. Lumbar Spine CT 02/03/23 11:44 IMPRESSION: 1. No evidence of acute fracture or traumatic subluxation of the lumbar spine. 2. 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 Most notably, there is moderate subcutaneous edema within the soft tissues of the back from T12-S1. No demonstrated discrete collection. Discharge Plan Discharge Anticipated Discharge Date/Time: 02/11/23 12:42 Patient Disposition: Xfer SNF Discharge Diagnosis: sepsis with ivdu ,mssa bacteremia Referrals: [facility] [Other] - 1 Week Physician,None [Primary Care Provider] - 1 Week Discharge Medications: New methadone [Methadose] 10 mg/mL Concentrate 10 mg PO DAILY@1999 Qty: 1 0RF Rx Instructions: Partial Fill upon patient request. methadone [Methadose] 10 mg/mL Concentrate 60 mg PO DAILY Qty: 1 0RF Rx Instructions: Partial Fill upon patient request. oxycodone 5 mg Tablet 5 mg PO Q6H PRN (Reason: Pain, Moderate(Pain Scale 4-6)) Qty: 10 0RF Rx Instructions: Partial Fill upon patient request. acetaminophen 325 mg Tablet 650 mg PO Q6H PRN (Reason: moderate pain or fever) Qty: 10 0RF lidocaine [Lidocaine Pain Relief] 4 % Adhesive Patch,Medicated 1 patch transdermal DAILY Qty: 5 0RF Protocol: Apply to: Apply to: affected area ibuprofen 800 mg Tablet 800 mg PO Q8H PRN (Reason: Pain, Mild (Pain Scale 1-3)) Qty: 10 0RF cefazolin in dextrose (iso-os) 2 gram/50 mL Piggyback 2 g IV Q8H Qty: 1 0RF Rx Instructions: continue for 4 weeks -end date is 03/13. Discharge Orders: Discharge Order (Routine); Ordered 02/11/23 Ordered By: Fletcher Son Diet: Advance to usual diet Activity on Discharge: As tolerated Stand Alone Forms: Patient Portal Discharge page Care Plan Goals: Patient admitted for IVDA (heroin, cocaine) presented with severe upper back pain-patient was started on IV antibiotics,pain meds ,blood cultures sent ,ct of back no collection,? she continues to refuse MRI, benefit explained to her, risk include abscess, osteomylitis and paralysis. Subsequently patient blood culture came back Staph Aureus bacteremia (NOT MRSA), repeat blood cultures negative @72 hrs . tranthoracic echo no vegetations. d/w ID- recomended 4 weeks iv cefazolin- consider moniter cbc ,bmp,esr ,crp,lft's weekly while on antibiotics . in addition hiv -,? hcv+ (should pusuit anti-viraltherapy on outpatient basis). polysubstance dependence: no longer risk of withdrawal,addiction med following -on methadone. Above management discussed the patient detail and she understand and in agreement with the above plan. Health Concerns: as above. Plan of Treatment: as above. Assessment: as above.
[2023-02-11 14:21] LABS: COVID-19 Test Negative (Negative); IDNOW Serial# 6674DD1D
[2023-02-13 11:53] LABS: HCV Log PCR 4.88 Log IU/mL (NOT DETECTED); HepC Viral Load 76200 IU/mL (NOT DETECTED)
== END 2023-02-11 15:01 | disposition skilled nursing facility (03) | DRG 720 ==
LOC: HO.ED 23:49 → HO.EDOVER 02-02 01:06 → HO.S3 02-02 07:31
PROVIDERS: Internal Medicine; Nurse Practitioner Psychiatric/Mental Health; Physician Assistant; Admitting Provider Internal Medicine; Emergency Provider Internal Medicine; Visit Provider Internal Medicine
DX: A41.9 Sepsis, unspecified organism (principal); B19.20 Unspecified viral hepatitis C without hepatic coma; F11.20 Opioid dependence, uncomplicated; B95.61 Methicillin susceptible Staphylococcus aureus infection as the cause of diseases classified elsewhere; F17.210 Nicotine dependence, cigarettes, uncomplicated; F19.20 Other psychoactive substance dependence, uncomplicated; Z20.822 Contact with and (suspected) exposure to COVID-19; Z59.02 Unsheltered homelessness; Z71.6 Tobacco abuse counseling; Z79.899 Other long term (current) drug therapy
CPT/HCPCS: 0241U; 36410; 36415; 36573; 71046; 72072; 72132; 80048; 80202; 80307; 81001; 82550; 82565; 83605; 85025; 85652; 86140; 86704; 86706; 86803; 87040; 87077; 87147; 87186; 87205; 87340; 87389; 87522; 87635; 93306; 99285; C1751; J0131; J0690; J1170; J1200; J2270; J2405; J2543; J3370; J3371; Q9967

== ENCOUNTER → 2023-03-13 13:28 | Outpatient (BNVA) | payer OTHER, SELFPAY | PROVIDERS: Visit Provider Internal Medicine | DX: R78.81 Bacteremia (principal); B95.61 Methicillin susceptible Staphylococcus aureus infection as the cause of diseases classified elsewhere; F11.20 Opioid dependence, uncomplicated; A41.9 Sepsis, unspecified organism | CPT/HCPCS: 99212 ==